=== PATIENT | female | born 1970 | race Hispanic/Latino ===

== ENCOUNTER 2017-10-02 17:28 | Emergency (ER) | payer OTHER ==
[2017-10-02] MEDS ORDERED: Albuterol 0.083% Inhal Sol (2.5 mg/3 mL) UD INH STA (18:02)
[2017-10-02] MEDS ORDERED: Promethazine 6.25 MG/5 ML CUP PO STA (18:02)
--- NOTE | 2017-10-02 18:07 | ED PDOC ---
Arrival/HPI - General Chief Complaint: Fever Time Seen by Provider: 10/02/17 17:41 Historian: Patient - History of Present Illness Narrative History of Present Illness (Text): 10/02/17 18:04 47yo female with no pmhx who present with complaint of nonproductive cough, left sided upper back pain, and fever x 3days. States it started last week and it resolved and then started again 3days ago. States she was taking Tylenol and Mucinex. She denies urinary symptoms, trauma, SOB, diaphoresis, nausea, vomiting , abdominal pain, any other complaint. Past Medical History - Provider Review Nursing Documentation Reviewed: Yes - Psychiatric Hx Substance Use: No Family/Social History - Physician Review Nursing Documentation Reviewed: Yes Family/Social History: Unknown Family HX Smoking Status: Never Smoked Hx Alcohol Use: No Hx Substance Use: No Allergies/Home Meds Allergies/Adverse Reactions: Allergies codeine Allergy (Verified 10/02/17 17:56) FATIGUE Review of Systems - Physician Review All systems were reviewed & negative as marked: Yes - Review of Systems Constitutional: Normal, Fevers Eyes: Normal ENT: Normal Respiratory: Cough. absent: SOB, Sputum, Wheezing Cardiovascular: Normal Gastrointestinal: Normal Genitourinary Female: Normal Musculoskeletal: Back Pain Skin: Normal Neurological: Normal Endocrine: Normal Hemo/Lymphatic: Normal Psychiatric: Normal Physical Exam Vital Signs Reviewed: Yes Vital Signs Temp Pulse Resp BP Pulse Ox 10/02/17 17:53 99.9 F H 124 H 18 124/82 95 Temperature: Febrile Blood Pressure: Normal Pulse: Tachycardic Respiratory Rate: Normal Appearance: Positive for: Well-Appearing, Non-Toxic, Comfortable Pain Distress: None Mental Status: Positive for: Alert and Oriented X 3 - Systems Exam Head: Present: Atraumatic, Normocephalic Pupils: Present: PERRL Extroacular Muscles: Present: EOMI Conjunctiva: Present: Normal Mouth: Present: Moist Mucous Membranes Neck: Present: Normal Range of Motion Respiratory/Chest: Present: Good Air Exchange, Rhonchi. No: Respiratory Distress, Accessory Muscle Use, Wheezes, Decreased Breath Sounds, Rales, Retracting Cardiovascular: Present: Regular Rate and Rhythm, Normal S1, S2. No: Murmurs Abdomen: No: Tenderness, Distention, Peritoneal Signs Back: Present: Normal Inspection. No: Midline Tenderness, Paraspinal Tenderness Upper Extremity: Present: Normal Inspection. No: Cyanosis, Edema Lower Extremity: Present: Normal Inspection. No: Edema Neurological: Present: GCS=15, CN II-XII Intact, Speech Normal Skin: Present: Warm, Dry, Normal Color. No: Rashes Psychiatric: Present: Alert, Oriented x 3, Normal Insight, Normal Concentration Medical Decision Making ED Course and Treatment: 10/02/17 18:08 47yo female in ED for fever, cough, back pain x 3days. Labs CXR Promethazine DM, Xopenx, 1L NS, Toradol 30mg Cardiac monitoring Will reassess 10/02/17 20:51 PT HR improved in ED s/p hydration. she was not hypoxic. She have Leukocytosis with shift. CXR LLL consolidation Blood culture pending. Levaquin 750mg ordered Pt;s Curb 65 criteria was zero. she does not meet criteria for admission. She also don;t have any co morbidity. All result was DW the pt. She was DC home with Levaquin 750mg, promethazine, albuterol and Naprosyn rx. Case was DW and he states he will see pt on Wednesday. PT was strongly advised to follow up with the PMD. TRT ED for any new or worsening symptoms. - Lab Interpretations Lab Results: 10/02/17 18:06 10/02/17 18:06 Lab Results 10/02/17 18:06: Sodium 138, Potassium 3.9, Chloride 96 L, Carbon Dioxide 26, Anion Gap 19, BUN 19, Creatinine 0.8, Est GFR ( Amer) > 60, Est GFR (Non- Af Amer) > 60, Random Glucose 140 H, Calcium 8.7, Total Bilirubin 0.9, AST 29, ALT 21, Alkaline Phosphatase 85, Total Protein 7.7, Albumin 4.0, Globulin 3.6, Albumin/Globulin Ratio 1.1 10/02/17 18:06: WBC 23.2 H, RBC 4.44, Hgb 12.6, Hct 37.1, MCV 83.6, MCH 28.4, MCHC 34.0, RDW 14.0, Plt Count 310, MPV 9.3, Gran % 95.2 H, Lymph % (Auto) 2.8 L , Mccreary % (Auto) 1.9, Eos % (Auto) 0.0 L, Baso % (Auto) 0.1, Gran # 22.13 H, Lymph # (Auto) 0.6 L, Mccreary # (Auto) 0.4, Eos # (Auto) 0.0, Baso # (Auto) 0.03, Neutrophils % (Manual) 92 H, Band Neutrophils % 2, Lymphocytes % (Manual) 5 L, Monocytes % (Manual) 1, Platelet Evaluation Normal, Anisocytosis (manual) 1+, Microcytosis (manual) Slight - RAD Interpretation Radiology Orders: 10/02/17 18:01 CHEST TWO VIEWS (PA/LAT) [RAD] Stat - Medication Orders Current Medication Orders: Discontinued Medications Sodium Chloride (Sodium Chloride 0.9%) 1,000 mls @ 999 mls/hr IV .Q1H1M STA Stop: 10/02/17 19:10 Last Admin: 10/02/17 18:55 Dose: 999 mls/hr eMAR Start Stop Document 10/02/17 18:55 EWO (Rec: 10/02/17 18:55 [email or web address] [id number]) Intravenous Solution Start Date 10/02/17 Start Time 18:10 End Date 10/02/17 End time 19:10 Total Infusion Time 60 Ketorolac Tromethamine (Toradol) 30 mg IVP STAT STA Stop: 10/02/17 18:03 Levalbuterol HCl (Xopenex) 1.25 mg IH STAT STA Stop: 10/02/17 18:11 Last Admin: 10/02/17 18:56 Dose: 1.25 mg Levofloxacin (Levaquin) 750 mg PO STAT STA PRN Reason: Protocol Stop: 10/02/17 20:03 Promethazine HCl (Phenergan Syrup) 6.25 mg PO ONCE STA Stop: 10/02/17 18:03 Disposition/Present on Arrival - Present on Arrival Any Indicators Present on Arrival: No History of DVT/PE: No History of Uncontrolled Diabetes: No Urinary Catheter: No History of Decub. Ulcer: No History Surgical Site Infection Following: None - Disposition Have Diagnosis and Disposition been Completed?: Yes Diagnosis: Pneumonia Disposition: HOME/ ROUTINE Disposition Time: 20:10 Patient Plan: Discharge Patient Problems: Current Active Problems Problem Status Onset Pneumonia Acute Condition: STABLE Discharge Instructions (ExitCare): Community-Acquired Pneumonia, Adult (DC) Additional Instructions: Take medication and drink plenty of fluid Follow up with your Doctor on Wednesday Return to ED for any new or worsening symptoms Prescriptions: Albuterol HFA [Ventolin HFA 90 mcg/actuation (8 g)] 2 puff IH [id number] #1 puff levoFLOXacin [Levaquin] 750 mg PO STAT #6 tab Naproxen [Naprosyn] 500 mg PO BID #20 tab Promethazine [Phenergan Syrup] 6.25 mg PO Q6 #100 cup Referrals: PCP,NO [Primary Care Provider] - Follow up with primary Vaibhav NEWELL,Meek Menjivar MD [Staff Provider] - Follow up with primary Forms: [employer] ([place]), WORK NOTE
[2017-10-02] MEDS ORDERED: Sodium Chloride 0.9% 1,000 ML IV STA (18:10)
[2017-10-02] MEDS ORDERED: Levalbuterol 1.25 MG/3 ML Inhal Soln UD IH STA (18:10)
[2017-10-02 18:47] LABS: BASO # 0.03 K/mm3 (0.0-2.0); BASO % 0.1 % (0.0-3.0); GRAN # 22.13 (1.4-6.5); GRAN % 95.2 % (50.0-68.0); HEMOGLOBIN 12.6 g/dL (12.0-16.0); LYMPH # 0.6 (1.2-3.4); LYMPH % 2.8 % (22.0-35.0); MEAN CELL VOLUME 83.6 fl (80.0-105.0); MEAN CORPUSCULAR HEMOGLOBIN 28.4 pg (25.0-35.0); MEAN PLATELET VOLUME 9.3 fl (7.0-11.0); MONO # 0.4 (0.1-0.6); MONO % 1.9 % (1.0-6.0); PLATELET COUNT 310 10^3/uL (120.0-450.0); RBC 4.44 10^6/uL (3.5-6.1); WHITE BLOOD COUNT 23.2 10^3/ul (4.5-11.0)
[2017-10-02 19:01] LABS: ALB/GLOB RATIO 1.1 (1.1-1.8); CALCIUM 8.7 mg/dL (8.4-10.5); GFR AFRICAN-AMERICAN > 60; GFR NON-AFRICAN AMERICAN > 60
[2017-10-02 19:05] LABS: ALT/SGPT 21 U/L (7-56); AST/SGOT 29 U/L (14-36); BLOOD UREA NITROGEN 19 mg/dL (7-21)
[2017-10-02 19:20] LABS: ANISOCYTOSIS 1+; BAND 2 % (0-2); LYMPHOCYTE 5 % (22.0-35.0); MICROCYTOSIS SLIGHT; MONOCYTE 1 % (1.0-6.0); NEUTROPHIL 92 % (50.0-70.0); PLATELET ESTIMATE NORMAL (NORMAL)
[2017-10-02] MEDS ORDERED: levoFLOXacin 750 MG TAB PO STA (20:02)
[2017-10-02 21:19] VITALS: RESP 17
[2017-10-02 21:20] LABS: URINE APPEARANCE CLOUDY (CLEAR); URINE BILIRUBIN SMALL (NEGATIVE); URINE BLOOD SMALL (NEGATIVE); URINE COLOR YELLOW (YELLOW); URINE GLUCOSE (UA) NEGATIVE (NEGATIVE); URINE LEUKOCYTE ESTERASE SMALL Leu/uL (NEGATIVE); URINE PROTEIN 100 mg/dL (<30 mg/dL)
[2017-10-02 21:28] LABS: URINE BACTERIA MANY (NEG)
[2017-10-02 21:29] LABS: URINE AMORPHOUS SEDIMENT FEW; URINE COARSE GRANULAR CAST SMALL /hpf (0-2); URINE FINE GRANULAR CAST 0 - 2 /hpf (0-2)
[2017-10-02 21:45] VITALS: BP 128/78; PULSE 112; TEMP 98.2; O2SAT 96
--- NOTE | 2017-10-03 10:59 | RAD ---
Date of service: 10/02/2017 HISTORY: cough COMPARISON: No prior. TECHNIQUE: Chest PA and lateral FINDINGS: LUNGS: Left lower lobe infiltrate likely representing pneumonia.Mild right basilar atelectasis. PLEURA: No significant pleural effusion identified. No pneumothorax apparent. CARDIOVASCULAR: Heart size is upper limits of normal. OSSEOUS STRUCTURES: No significant abnormalities. VISUALIZED UPPER ABDOMEN: Normal. OTHER FINDINGS: None. IMPRESSION: Left lower lobe infiltrate likely representing pneumonia. Mild right basilar atelectasis
== END 2017-10-02 21:45 | disposition home or self-care (01) ==
LOC: ED 17:28
DX: J18.9 Pneumonia, unspecified organism (principal)
CPT/HCPCS: 71046; 80053; 81001; 84702; 85025; 87040; 87149; 87205; 96360; 99284; J1885; J7030

== ENCOUNTER 2017-10-13 06:12 | Inpatient (IN) | payer OTHER ==
--- NOTE | 2017-10-13 06:54 | ED PDOC ---
Arrival/HPI - General Chief Complaint: Back Pain Time Seen by Provider: 10/13/17 06:31 Historian: Patient - History of Present Illness Narrative History of Present Illness (Text): 10/13/17 06:51 Patient presents to the ED PMHX recent pneumonia with complaint of onset pain to the left scapula /back area.States began yesterday associated with low grade fever.No chest pain or SOB.Patient was seen in the ED ~ 11 days prior diagnosed with a pneumonia discharged on antibiotics.States she followed up with her doctor who extended the course of antibiotics recently finished/Patient states she returned to work 2 days ago.Patient states symptoms similar to when she was diagnosed with pneumonia. Past Medical History - Provider Review Nursing Documentation Reviewed: Yes - Travel History Have you recently traveled outside [place] w/in the past 3 mons?: No - Pulmonary Hx Pneumonia: Yes - Psychiatric Hx Substance Use: No - Anesthesia Hx Anesthesia: No Family/Social History - Physician Review Nursing Documentation Reviewed: Yes Family/Social History: No Known Family HX Smoking Status: Never Smoked Hx Alcohol Use: No Hx Substance Use: No Allergies/Home Meds Allergies/Adverse Reactions: Allergies codeine Allergy (Verified 10/13/17 06:31) FATIGUE Review of Systems - Review of Systems Constitutional: Fevers Eyes: Normal ENT: Normal Respiratory: Normal Cardiovascular: Normal Gastrointestinal: Normal Genitourinary Female: Normal Musculoskeletal: Back Pain Skin: Normal Neurological: Normal Endocrine: Normal Hemo/Lymphatic: Normal Psychiatric: Normal Physical Exam Vital Signs Temp Pulse Resp BP Pulse Ox 10/13/17 06:30 99 F 100 H 14 117/49 L 96 Temperature: Afebrile Blood Pressure: Normal Pulse: Regular Respiratory Rate: Normal Appearance: Positive for: Well-Appearing, Non-Toxic, Comfortable Pain Distress: None Mental Status: Positive for: Alert and Oriented X 3 - Systems Exam Head: Present: Atraumatic, Normocephalic Pupils: Present: PERRL Extroacular Muscles: Present: EOMI Conjunctiva: Present: Normal Mouth: Present: Moist Mucous Membranes Neck: Present: Normal Range of Motion Respiratory/Chest: Present: Clear to Auscultation, Good Air Exchange. No: Respiratory Distress, Accessory Muscle Use Cardiovascular: Present: Regular Rate and Rhythm, Normal S1, S2. No: Murmurs Abdomen: No: Tenderness, Distention, Peritoneal Signs Back: Present: Normal Inspection. No: CVA Tenderness Upper Extremity: Present: Normal Inspection. No: Cyanosis, Edema Lower Extremity: Present: Normal Inspection. No: Edema Neurological: Present: GCS=15, CN II-XII Intact, Speech Normal, Motor Func Grossly Intact, Normal Sensory Function Skin: Present: Warm, Dry, Normal Color. No: Rashes Psychiatric: Present: Alert, Oriented x 3, Normal Insight, Normal Concentration Medical Decision Making ED Course and Treatment: 10/13/17 06:56 Differntial DX. Pneumonia/pneumothorax/musculoskeletal pain Plan: -Labs/CXR/EKG -reassess/disposition 10/13/17 07:00 Case endorsed to /pending labs/CXR/reassess/final disposition - RAD Interpretation Radiology Orders: 10/13/17 06:47 CHEST TWO VIEWS (PA/LAT) [RAD] Stat Disposition/Present on Arrival - Present on Arrival Any Indicators Present on Arrival: No History of DVT/PE: No History of Uncontrolled Diabetes: No Urinary Catheter: No History of Decub. Ulcer: No History Surgical Site Infection Following: None - Disposition Have Diagnosis and Disposition been Completed?: No Diagnosis: Back pain Disposition Time: 07:00 Condition: STABLE Referrals: Vaibhav NEWELL,Meek Menjivar MD [Primary Care Provider] - Follow up with primary
[2017-10-13 07:03] LABS: VENOUS BLOOD GAS PO2 45 mm/Hg (30-55); VENOUS BLOOD PH 7.47 (7.32-7.43)
[2017-10-13 07:07] LABS: HEMOGLOBIN 11.8 g/dL (12.0-16.0); MEAN CELL VOLUME 83.5 fl (80.0-105.0); MEAN CORPUSCULAR HGB CONC 32.3 g/dl (31.0-37.0); MEAN PLATELET VOLUME 8.5 fl (7.0-11.0); RBC 4.37 10^6/uL (3.5-6.1); RED CELL DISTRIBUTION WIDTH 14.8 % (11.5-14.5); WHITE BLOOD COUNT 20.2 10^3/ul (4.5-11.0)
[2017-10-13] MEDS ORDERED: Sodium Chloride 0.9% 1,000 ML IV STA (07:15)
--- NOTE | 2017-10-13 07:28 | ED PDOC ---
Physical Exam Vital Signs Temp Pulse Resp BP Pulse Ox 10/13/17 06:30 99 F 100 H 14 117/49 L 96 Medical Decision Making ED Course and Treatment: 10/13/17 07:17 Case endorsed to me by Dr. Ayoub. Pending Labs, Chest X-ray, reassess and disposition. 10/13/17 08:20 CXR Impression: As read by me, left lower lobe pneumonia. Worse than pervious Chest X-ray. 10/13/17 08:[address] Esposito who is aware and agrees with the plan with administering Rocephin and Zithromax. Accepts patient into his service and request Dr. Gerard Filling Room Operator consult. - Lab Interpretations Lab Results: 10/13/17 06:55 10/13/17 06:55 Lab Results 10/13/17 06:55: Magnesium 2.0 10/13/17 06:55: WBC 20.2 H, RBC 4.37, Hgb 11.8 L, Hct 36.5, MCV 83.5, MCH 27.0, MCHC 32.3, RDW 14.8 H, Plt Count 372, MPV 8.5 10/13/17 06:55: Sodium 138, Chloride 100, Potassium 3.2 L, Carbon Dioxide 26, Anion Gap 15, BUN 8, Creatinine 0.6 L, Est GFR ( Amer) > 60, Est GFR (Non -Af Amer) > 60, Random Glucose 133 H, Calcium 8.7, Total Bilirubin 0.7, AST 14 D, ALT 19, Alkaline Phosphatase 68, Total Protein 7.3, Albumin 3.8, Globulin 3.5 , Albumin/Globulin Ratio 1.1 10/13/17 06:55: pO2 45, VBG pH 7.47 H, VBG pCO2 40.0, VBG HCO3 29.1 H, VBG Total CO2 30.3 H, VBG O2 Sat (Calc) 85.5 H, VBG Base Excess 5.0 H, VBG Potassium 3.3 L, Sodium 136.0, Chloride 100.0, Glucose 144 H, Lactate 1.2, FiO2 21.0, Venous Blood Potassium 3.3 L I have reviewed the lab results: Yes - RAD Interpretation Radiology Orders: 10/13/17 06:47 CHEST TWO VIEWS (PA/LAT) [RAD] Stat - Medication Orders Current Medication Orders: Albuterol/Ipratropium (Duoneb 3 Mg/0.5 Mg (3 Ml) Ud) 3 ml IH Q2H PRN PRN Reason: Shortness of Breath Albuterol/Ipratropium (Duoneb 3 Mg/0.5 Mg (3 Ml) Ud) 3 ml IH Q4H GIBSON Azithromycin (Zithromax) 500 mg PO DAILY GIBSON PRN Reason: Protocol Ceftriaxone Sodium (Rocephin 1 Gram Ivpb) 1 gm in 100 mls @ 100 mls/hr IVPB DAILY GIBSON PRN Reason: Protocol Discontinued Medications Azithromycin (Zithromax) 500 mg PO STAT STA PRN Reason: Protocol Stop: 10/13/17 08:31 Sodium Chloride (Sodium Chloride 0.9%) 1,000 mls @ 999 mls/hr IV .Q1H1M STA Stop: 10/13/17 08:15 Last Admin: 10/13/17 07:48 Dose: 999 mls/hr eMAR Start Stop Document 10/13/17 07:48 [email or web address] (Rec: 10/13/17 07:49 [email or web address] [id number]) Intravenous Solution Start Date 10/13/17 Start Time 07:48 End Date 10/13/17 Ceftriaxone Sodium (Rocephin 1 Gram Ivpb) 1 gm in 100 mls @ 200 mls/hr IVPB STAT STA PRN Reason: Protocol Stop: 10/13/17 08:58 Ketorolac Tromethamine (Toradol) 30 mg IVP ONCE ONE Stop: 10/13/17 07:16 Last Admin: 10/13/17 07:49 Dose: 30 mg MAR Pain Assessment Document 10/13/17 07:49 [email or web address] (Rec: 10/13/17 07:49 [email or web address] [id number]) Pain Reassessment Is this a pain reassessment? No Sleep Is patient sleeping during reassessment? No Presence of Pain Presence of Pain Yes Pain Scale Used Pain Scale Used Numeric Location Left, Right or Bilateral Left Pain Location Body Site Back Description Description Constant Intensity of Pain at present 5 Pain Behavior Facial Grimacing Aggravating Factors Changing Position Alleviating Factors/Management Medication Techniques Alleviating Factors Medication IVP Administration Document 10/13/17 07:49 [email or web address] (Rec: 10/13/17 07:49 [email or web address] [id number]) Charges for Administration # of IVP Administrations 1 Potassium Chloride (K-Dur 20 Meq Er Tab) 40 meq PO STAT STA Stop: 10/13/17 07:57 - Scribe Statement The provider has reviewed the documentation as recorded by the Tere Harris Provider Scribe Attestation: All medical record entries made by the Scribe were at my direction and personally dictated by me. I have reviewed the chart and agree that the record accurately reflects my personal performance of the history, physical exam, medical decision making, and the department course for this patient. I have also personally directed, reviewed, and agree with the discharge instructions and disposition. Disposition/Present on Arrival - Present on Arrival Any Indicators Present on Arrival: No History of DVT/PE: No History of Uncontrolled Diabetes: No Urinary Catheter: No History of Decub. Ulcer: No History Surgical Site Infection Following: None - Disposition Have Diagnosis and Disposition been Completed?: Yes Diagnosis: Back pain Disposition Time: 08:30 Patient Plan: Admission Patient Problems: Current Active Problems Problem Status Onset Back pain Acute Condition: FAIR Referrals: Vaibhav NEWELL,Meek Menjivar MD [Primary Care Provider] - Follow up with primary Forms: [employer] ([place])
[2017-10-13 07:54] LABS: ALB/GLOB RATIO 1.1 (1.1-1.8); ALBUMIN 3.8 g/dL (3.0-4.8); ALT/SGPT 19 U/L (7-56); AST/SGOT 14 U/L (14-36); BLOOD UREA NITROGEN 8 mg/dL (7-21); CALCIUM 8.7 mg/dL (8.4-10.5); GFR NON-AFRICAN AMERICAN > 60
[2017-10-13] MEDS ORDERED: Potassium Chloride 20 mEq ER Tab PO STA (07:56)
[2017-10-13] MEDS ORDERED: cefTRIAXone 1 gm 1 GM/100 ML BAG IVPB STA (08:29)
[2017-10-13] MEDS ORDERED: Albuterol-Ipratrop 3 mg / 0.5 (3 ml) UD IH PRN (08:31)
--- NOTE | 2017-10-13 09:11 | RAD ---
Date of service: 10/13/2017 HISTORY: pain COMPARISON: 10/02/2017 TECHNIQUE: Chest PA and lateral FINDINGS: LUNGS: No active pulmonary disease. PLEURA: Moderate size left effusion CARDIOVASCULAR: Normal. OSSEOUS STRUCTURES: No significant abnormalities. VISUALIZED UPPER ABDOMEN: Normal. OTHER FINDINGS: None. IMPRESSION: Moderate left effusion
[2017-10-13] MEDS: Albuterol-Ipratrop 3 mg / 0.5 (3 ml) UD IH SCH ×5 (09:14→23:18)
[2017-10-13] MEDS ORDERED: Vancomycin 1gm in NS 250ml 1 GM/250 ML BAG IVPB SCH (10:00)
--- NOTE | 2017-10-13 10:12 | HP ---
HISTORY OF PRESENT ILLNESS: The patient is a 47 year old woman with no significant medical history who presented to [facility] for evaluation of a 10 day history of pleuritic chest pain, cough productive of green sputum, subjective fevers and malaise. The patient was initially seen at [facility] ED on 2017 for the aforementioned symptoms. She was diagnosed with pneumonia and discharged on a course of Levaquin 750mg daily for 7 days. The patient followed up with her PMD 3 days later and was clinically improved. Her course of Levaquin was extended an additional 3 days for a total of 10 days. Approximately 2 days after completing a course of antibiotics, the patient developed recurrent left-sided pleuritic chest pain which prompted her ED visit. On examination she was found to be afebrile and hemodynamically stable. Labs demonstrated leukocytosis with a WBC of 20 and radiographs demonstrated a left-sided pleural effusion (worse as compared to prior). Of note, on her prior ED visit her cultures grew Streptococcus pneumoniae. The patient was started on IV fluids, IV antibiotics and admitted for continued management of left lower lobe pneumonia. PAST MEDICAL HISTORY: None. PAST SURGICAL HISTORY: None. ALLERGIES: Codeine. MEDICATIONS: None. FAMILY HISTORY: Significant for diabetes and hypertension. SOCIAL HISTORY: The patient denies any history of tobacco or illicit drug abuse. She reports social alcohol use. REVIEW OF SYSTEMS: A 12-point review of systems is negative except as per HPI. PHYSICAL EXAMINATION: VITAL SIGNS: Temperature 97.8, pulse 100, blood pressure 117/49, respiratory rate 14, oxygen saturation 96% on room air. GENERAL: No apparent distress. HEENT: PERRL, EOMI. No scleral icterus. No conjunctival pallor. NECK: No JVD. LUNGS: Decreased breath sounds at bases with few scattered rhonchi and crackles to the left base extending approximately one-third of the way up the left hemithorax. CARDIOVASCULAR: Regular rate and rhythm. Normal S1 and S2. No murmurs. ABDOMEN: Normoactive bowel sounds. Soft, nontender, nondistended. EXTREMITIES: No edema. NEUROLOGIC: Awake, alert and oriented x 3. No focal motor deficits. LABORATORY DATA: WBC 20, hemoglobin 12, hematocrit 36, platelets 372. Sodium 138, potassium 3.2, chloride 100, bicarb 26, BUN 8, creatinine 0.6, glucose 133. IMAGING STUDIES: Chest x-ray demonstrates moderate left effusion. ASSESSMENT: The patient is a 47 year old woman with no significant past medical history who was recently treated with a 10 day course of Levaquin for left lower lobe pneumonia and who returned to [facility] ED for evaluation of a 2 day history of left-sided pleuritic chest pain and admitted for management of healthcare-associated pneumonia. PLAN: 1. Healthcare-associated pneumonia. We will start Azithromycin and Ceftriaxone. Cultures from her prior ED visit are noted. We will repeat blood and sputum culture. Dr. Mason of Infectious Disease has been consulted for further evaluation and recommendations. Dr. Gerard of Pulmonary & Critical Care Medicine has also been consulted. We will continue to monitor for fever and leukocytosis. 2. Prophylaxis. GI prophylaxis not indicated as the patient is eating. DVT prophylaxis not indicated as the patient is ambulatory. CODE STATUS: Full code. Meek sEposito MD MTDD
[2017-10-13] MEDS: Piperacillin/Tazobact 3.375 gm 100 ML IVPB SCH ×3 (10:26→18:27)
--- NOTE | 2017-10-13 11:02 | CT ---
Date of service: 10/13/2017 PROCEDURE: CT Chest without contrast HISTORY: left pleural effusion COMPARISON: None available. TECHNIQUE: Contiguous axial images were obtained through the chest without intravenous contrast enhancement. Sagittal and coronal reconstructions were performed. Radiation dose (DLP): 1117 mGy-cm. This CT exam was performed using one or more of the following dose reduction techniques: Automated exposure control, adjustment of the mA and/or kV according to patient size, and/or use of iterative reconstruction technique. FINDINGS: LUNGS: There is consolidation at the left lung base with air bronchograms. This is adjacent to a large left pleural effusion. There is also volume loss in the left lung MEDIASTINUM: Unremarkable thoracic aorta. No aneurysm. Normal sized heart. Main pulmonary artery unremarkable. No vascular congestion. No lymphadenopathy. PLEURA: Large left-sided pleural effusion which appears to be loculated BONES: No fracture. No destructive lesion. UPPER ABDOMEN: Grossly unremarkable. OTHER FINDINGS: There is enlargement of the thyroid right greater than left consistent with goiter IMPRESSION: There is consolidation at the left lung base with air bronchograms. This is adjacent to a large left pleural effusion. There is also volume loss in the left lung
[2017-10-13 12:29] VITALS: BMI 45.4
[2017-10-13] MEDS ORDERED: Pneumococcal 23-Valent Vaccine IM ONE (12:29)
[2017-10-13] MEDS: Linezolid 600 mg in D5W 300 ml 600 MG/300 ML BAG IVPB SCH ×2 (13:25→21:43)
--- NOTE | 2017-10-13 14:16 | CP.PCM.CON ---
History of Present Illness - History of Present Illness History of Present Illness: 47 year old female with PMH of morbid obesity with BMI 45 was recently seen in the ED on 2017 for left sided posterior chest pain. CXR was done which showed left lower lobe pneumonia and the patient was prescribed Levofloxacin 750 mg daily. Blood cultures drawn at that time showed Strep. pneumoniae, sensitive to Levofloxacin. The patient took it for 7 days, saw her PMD who extended it for another 3 days, therefore the patient took a total of 10 days of antibiotics. The patient's chest pain improved and initially the patient has some shortness of breath but it improved as well. She was relatively symptom- free for about 2 days and then her chest pain flared up again yesterday, with associated dry cough. Prior to her pneumonia diagnosis, she went to [place] and did sight-seeing, went to a [place], had walks outdoors. She denies specific animal contacts, denies insect bites. She denies fever or chills, no nausea or vomiting, no headache or dizziness, no sore throat, no rhinorrhea, no dysphagia, no skin rash, no pruritus, no abdominal pain, no diarrhea, no dysuria , no hematuria. CXR was repeated showing the left lower lobe infiltrates as well as surrounding effusion, confirmed on CT chest. Infectious Diseases consult is requested to further evaluate and manage. Review of Systems - Review of Systems All systems: reviewed and no additional remarkable complaints except (as per HPI ) Past Patient History - Past Social History Smoking Status: Never Smoked - PULMONARY Hx Pneumonia: Yes - PSYCHIATRIC Hx Substance Use: No - SURGICAL HISTORY Hx Surgeries: No - ANESTHESIA Hx Anesthesia: No Meds Allergies/Adverse Reactions: Allergies Allergy/AdvReac Type Severity Reaction Status Date / Time codeine Allergy FATIGUE Verified 10/13/17 11:58 - Medications Medications: Current Medications Albuterol/Ipratropium (Duoneb 3 Mg/0.5 Mg (3 Ml) Ud) 3 ml IH Q2H PRN PRN Reason: Shortness of Breath Albuterol/Ipratropium (Duoneb 3 Mg/0.5 Mg (3 Ml) Ud) 3 ml IH Q4H GIBSON Azithromycin (Zithromax) 500 mg PO DAILY GIBSON PRN Reason: Protocol Ceftriaxone Sodium (Rocephin 1 Gram Ivpb) 1 gm in 100 mls @ 100 mls/hr IVPB DAILY GIBSON PRN Reason: Protocol Physical Exam - Constitutional Appears: Non-toxic, Chronically Ill - Head Exam Head Exam: NORMAL INSPECTION - ENT Exam ENT Exam: Mucous Membranes Moist - Neck Exam Neck exam: Negative for: Meningismus - Respiratory Exam Respiratory Exam: Decreased Breath Sounds (at the left base) - Cardiovascular Exam Cardiovascular Exam: +S1, +S2 - GI/Abdominal Exam GI & Abdominal Exam: Soft. absent: Tenderness Results - Vital Signs Recent Vital Signs: Last Vital Signs Temp 99 F 10/13/17 06:30 Pulse 100 H 10/13/17 06:30 Resp 14 10/13/17 06:30 BP 117/49 L 10/13/17 06:30 Pulse Ox 96 10/13/17 06:30 - Labs Result Diagrams: 10/13/17 06:55 10/13/17 06:55 Assessment & Plan - Assessment and Plan (Free Text) Plan: Assessment Sepsis due to left lower lobe healthcare-associated pneumonia with parapneumonic effusion with possible gram positive cocci and/or gram negative bacilli and/or atypical organisms R/O left sided empyema recent treatment of left lower lobe community-acquired pneumonia with Strep pneumoniae bacteremia morbid obesity with BMI 45 Plan Started Zyvox, Zosyn and Zithromax pending blood cx, urine Legionella Ag, PCT, sputum cx; reviewed CXR and CT chest follow up Pulmonary evaluation and recommendations would suggest diagnostic thoracentesis for pleural fluid analysis and cultures will check HIV test will monitor clinically
[2017-10-13] MEDS ORDERED: guaiFENesin-Codeine 100-10mg/5ml Syrup (5 ml) UD PO PRN (17:57)
[2017-10-13] MEDS: guaiFENesin 100 mg/5 ml Syrup UD PO PRN (18:15)
--- NOTE | 2017-10-13 19:41 | CARD ---
APPROVED REPORT Date of service: 10/13/2017 EXAM: Two-dimensional and M-mode echocardiogram with Doppler and color Doppler. INDICATION Infection:Rule out subacute bacterial endocarditis 2D DIMENSIONS Left Atrium (2D)3.7 (1.6-4.0cm)IVSd1.1 (0.7-1.1cm) LVDd4.1 (3.9-5.9cm)PWd1.2 (0.7-1.1cm) LVDs2.9 (2.5-4.0cm)FS (%) 30.4 % LVEF (%)58.2 (>50%) M-Mode DIMENSIONS Aortic Root3.40 (2.2-3.7cm)Aortic Cusp Exc.1.80 (1.5-2.0cm) Aortic Valve AoV Peak Akjmerag915.0cm/Danielle Peak GR.14mmHg Mitral Valve MV E Dztnzanb32.0cm/sMV A Osarywrr311.0cm/sE/A ratio0.8 TDI Lateral E' Peak V13.10cm/sMedial E' Peak V6.43cm/sE/Lateral E'6.6 E/Medial E'13.5 Pulmonary Valve PV Peak Gubzmgzb547.0cm/sPV Peak Grad.7mmHg Tricuspid Valve TR Peak Lnoxdydq401pr/sRAP [id number] Peak Gr.10mmHg [id number] LEFT VENTRICLE The left ventricle is normal size. There is borderline concentric left ventricular hypertrophy. The left ventricular function is normal. The left ventricular ejection fraction is within the normal range. There is normal LV segmental wall motion. Transmitral Doppler flow pattern is Grade I-abnormal relaxation pattern. RIGHT VENTRICLE The right ventricle is normal size. There is normal right ventricular wall thickness. The right ventricular systolic function is normal. ATRIA The left atrium size is normal. The right atrium size is normal. AORTIC VALVE The aortic valve is mildly thickened. No aortic regurgitation is present. There is no aortic valvular stenosis. MITRAL VALVE The mitral valve is normal in structure. There is no mitral valve regurgitation noted. There is no mitral valve stenosis. TRICUSPID VALVE The tricuspid valve is normal in structure. There is trace tricuspid regurgitation. PULMONIC VALVE The pulmonary valve is normal in structure. There is no pulmonic valvular regurgitation. GREAT VESSELS The aortic root is normal in size. The IVC is normal in size and collapses >50% with inspiration. PERICARDIAL EFFUSION There is small left pleural effusion. There is a trace circumferential pericardial effusion. <Conclusion> The left ventricle is normal size. There is borderline concentric left ventricular hypertrophy. The left ventricular function is normal. The left ventricular ejection fraction is within the normal range. There is normal LV segmental wall motion. Transmitral Doppler flow pattern is Grade I-abnormal relaxation pattern. No vegitation seen
--- NOTE | 2017-10-13 23:31 | CARD ---
APPROVED REPORT Date of service: 10/13/2017 EKG Measurement Heart [id number] <Conclusion> Sinus tachycardia Otherwise normal ECG
[2017-10-14] MEDS: Piperacillin/Tazobact 3.375 gm 100 ML IVPB SCH ×5 (00:10→23:18)
[2017-10-14] MEDS: Albuterol-Ipratrop 3 mg / 0.5 (3 ml) UD IH SCH ×6 (04:36→22:47)
[2017-10-14 06:46] LABS: BASO # 0.02 K/mm3 (0.0-2.0); BASO % 0.1 % (0.0-3.0); EOS # 0.1 (0.0-0.7); EOS % 0.9 % (1.5-5.0); GRAN # 10.96 (1.4-6.5); GRAN % 79.4 % (50.0-68.0); HEMOGLOBIN 10.7 g/dL (12.0-16.0); LYMPH # 1.7 (1.2-3.4); LYMPH % 12.5 % (22.0-35.0); MEAN CELL VOLUME 84.5 fl (80.0-105.0); MEAN CORPUSCULAR HEMOGLOBIN 27.2 pg (25.0-35.0); MEAN CORPUSCULAR HGB CONC 32.1 g/dl (31.0-37.0); MEAN PLATELET VOLUME 8.5 fl (7.0-11.0); MONO % 7.1 % (1.0-6.0); RBC 3.94 10^6/uL (3.5-6.1); RED CELL DISTRIBUTION WIDTH 15.2 % (11.5-14.5); WHITE BLOOD COUNT 13.8 10^3/ul (4.5-11.0)
[2017-10-14 07:19] LABS: ALBUMIN 3.4 g/dL (3.0-4.8); ALT/SGPT 15 U/L (7-56); AST/SGOT 16 U/L (14-36); BLOOD UREA NITROGEN 6 mg/dL (7-21); CALCIUM 8.3 mg/dL (8.4-10.5); GFR NON-AFRICAN AMERICAN > 60
--- NOTE | 2017-10-14 08:58 | PN ---
SUBJECTIVE: The patient was seen and examined at bedside on the general medical ac. No acute events overnight. She remains afebrile and hemodynamically stable. This morning she reports mild improvement in her respiratory status but continues to endorse pleuritic chest pain and otherwise offers no complaints. PHYSICAL EXAMINATION: VITAL SIGNS: Temperature 97.6, pulse 97, blood pressure 147/86, respiratory rate 20, oxygen saturation 92% on room air. GENERAL: No apparent distress. HEENT: PERRL, EOMI. No scleral icterus. No conjunctival pallor. NECK: No JVD. LUNGS: Decreased breath sounds at the bases with few scattered rhonchi and crackles to the left base. CARDIOVASCULAR: Regular rate and rhythm. Normal S1, S2. No murmurs. ABDOMEN: Normoactive bowel sounds, soft, nontender, nondistended. EXTREMITIES: No edema. NEUROLOGIC: Awake, alert, and oriented x 3. No focal motor deficits. LABORATORY DATA: WBC 13.8 with 79% neutrophils, hemoglobin 10.7, hematocrit 33, platelets 322. Chemistry reviewed and unremarkable. Procalcitonin less than 0.05. ASSESSMENT: The patient is a 47 year old woman with no significant past medical history who was recently treated with a 10 day course of Levaquin for left lower lobe pneumonia with cultures growing Streptococcus pneumoniae who returned to [facility] ED for evaluation of a 2 day history of left-sided pleuritic chest pain and was admitted for management of healthcare-associated pneumonia. PLAN: 1. Healthcare-associated pneumonia. CT imaging reviewed. Input from Dr. Mason greatly appreciated. The patient remains on Azithromycin, Zosyn and Linezolid. Continue with supplemental oxygen and bronchodilators as needed. Continue to monitor for fever and leukocytosis. Continue to encourage incentive spirometry. 2. Prophylaxis. GI prophylaxis is not indicated as the patient is eating. DVT prophylaxis is not indicated as the patient is ambulatory. CONSENT: Full code. Meek Esposito MD [facility]TD[facility]
--- NOTE | 2017-10-14 09:53 | CON ---
Copied To: Harrison Gerard MD Attending MD: Harrison Gerard MD DATE: 10/14/2017 PULMONARY CONSULTATION HISTORY: This is a 47-year-old woman with minimal previous medical history. She stated that several days ago, she had some pain. It came on abruptly. It was not associated with fever or chills. She did not cough, did not have any expectoration. She was treated as an outpatient with levofloxacin when an x-ray showed pneumonia. It was found to be strep sensitive to pneumonia; after seven days, she did not feel better and she came to the hospital for additional time. The patient is sitting in bed comfortable, eating, states that the chest discomfort has reduced remarkably. She is not in any acute distress at this time. Further history is that she was in [place], [place] and active and at that time, had the development of this pain originally. The patient has morbid obesity. CAT scan of the chest shows a left lower lobe infiltrate with some parapneumonic effusion. PAST HISTORY: Negative. She has had pneumonia in the past, however; she is a nonsmoker. Travel history of no significance. No surgical history. SOCIAL HISTORY: Nonsmoker FAMILY HISTORY: Hypertension OUTPATIENT MEDICATIONS: Unknown at this time. ALLERGIES: CODEINE. REVIEW OF SYSTEMS: Reviewed with no additional remarkable complaints other than pleuritic discomfort. All other systems negative. PHYSICAL EXAMINATION: GENERAL: She is resting comfortably with no particular problems. She has a low grade fever of 99 yesterday, which is normal this morning; pulse is 90; respiratory rate is 16; blood pressure 120/70, pulse ox 96% on room air. NECK: Supple. No jugular venous distention. No lymphadenopathy. HEENT: Normocephalic, atraumatic. Eyes: PERRL. EOMs full. Conjunctivae pink. NECK: Supple. No JVD. No bruit. CHEST: Decreased breath sounds at the left base. Minimal rhonchi noted. CARDIOVASCULAR: Regular rhythm. S1, S2 without murmur, gallop or rub. ABDOMEN: Protuberant, soft. Bowel sounds normoactive without mass, guarding, rebound or organomegaly. EXTREMITIES: Reveal no clubbing, cyanosis, edema. NEUROLOGIC: No focal findings. SKIN: Dry; intact DATA: Laboratory data on admission are white count 20,000, hemoglobin 11.8, hematocrit 36, platelet count 372,000. Sodium 138, BUN 8, creatinine 0.6. Blood sugar 133. Chest x-ray: Left lower lobe infiltrate with effusion confirmed by CT of the chest. EKG, sinus rhythm, nonspecific ST-T wave changes. ASSESSMENT: 1. Left lower lobe pneumonia with parapneumonic effusion. 2. Bronchospasm upon admission, but no previous history of asthma. PLAN: The patient was already seen by Infectious Disease and was started on Zyvox, Zosyn and Zithromax pending blood cultures. Other serology is pending. At this time, I do not feel that an emergent thoracentesis as necessary. The patient is more comfortable and hopefully with antibiotic therapy, the effusion will decrease. Should the patient become more febrile or the effusion increase, then obviously drainage of this effusion is mandatory. At this time, however, I would treat cautiously and not take any chances with invasive procedure if it is not absolutely necessary. The patient appears to be responding to the antibiotics and hopefully, the effusion will resolve as well. I have discussed this case at length with the patient and we will call Dr. Esposito and discuss with him at any time if it seems necessary, we can do a diagnostic and therapeutic thoracentesis, pending the patient's status at that time. Thank you for the opportunity to evaluate this patient. We will follow closely with you. Harrison Gerard MD MTD[facility]
[2017-10-14] MEDS ORDERED: cefTRIAXone 1 gm 1 GM/100 ML BAG IVPB SCH (10:00)
[2017-10-14] MEDS: Linezolid 600 mg in D5W 300 ml 600 MG/300 ML BAG IVPB SCH ×2 (10:15→21:17)
--- NOTE | 2017-10-14 16:37 | CP.PCM.PN ---
Subjective - Date & Time of Evaluation Date of Evaluation: 10/14/17 Time of Evaluation: 11:45 - Subjective Subjective: Comfortable on a chair, no fevers, still with chest pain, no cough currently, no nausea or diarrhea. Objective - Vital Signs/Intake and Output Vital Signs (last 24 hours): Temp Pulse Resp BP Pulse Ox 98 F 101 H 20 119/74 93 L 10/13/17 23:08 10/13/17 23:08 10/13/17 23:08 10/13/17 23:08 10/13/17 23:08 - Medications Medications: Current Medications Albuterol/Ipratropium (Duoneb 3 Mg/0.5 Mg (3 Ml) Ud) 3 ml IH Q2H PRN PRN Reason: Shortness of Breath Albuterol/Ipratropium (Duoneb 3 Mg/0.5 Mg (3 Ml) Ud) 3 ml IH Q4H GIBSON Last Admin: 10/14/17 04:36 Dose: 3 ml Azithromycin (Zithromax) 500 mg PO DAILY GIBSON PRN Reason: Protocol Last Admin: 10/13/17 10:25 Dose: Not Given Guaifenesin (Robitussin) 100 mg PO Q4H PRN PRN Reason: Cough Last Admin: 10/13/17 18:15 Dose: 100 mg Piperacillin Sod/Tazobactam Sod (Zosyn 3.375 In Ns 100ml) 100 mls @ 200 mls/hr IVPB Q6 GIBSON PRN Reason: Protocol Stop: 10/20/17 10:01 Last Admin: 10/14/17 06:06 Dose: 200 mls/hr Linezolid (Zyvox 600mg/300ml D5w) 600 mg in 300 mls @ 200 mls/hr IVPB Q12 GIBSON PRN Reason: Protocol Stop: 10/20/17 12:31 Last Admin: 10/13/17 21:43 Dose: 200 mls/hr Ibuprofen (Motrin Tab) 600 mg PO Q6H PRN PRN Reason: Pain, moderate (4-7) Last Admin: 10/13/17 18:05 Dose: 600 mg - Labs Labs: 10/14/17 06:00 - Constitutional Appears: Chronically Ill - Head Exam Head Exam: NORMAL INSPECTION - Neck Exam Neck Exam: absent: Meningismus - Respiratory Exam Respiratory Exam: Decreased Breath Sounds - Cardiovascular Exam Cardiovascular Exam: +S1, +S2 - GI/Abdominal Exam GI & Abdominal Exam: Soft. absent: Tenderness Assessment and Plan - Assessment and Plan (Free Text) Plan: Assessment Sepsis due to left lower lobe healthcare-associated pneumonia with parapneumonic effusion with possible gram positive cocci and/or gram negative bacilli and/or atypical organisms R/O left sided empyema recent treatment of left lower lobe community-acquired pneumonia with Strep pneumoniae bacteremia morbid obesity with BMI 45 Plan continue Zyvox, Zosyn and Zithromax day 2 pending blood cx, urine Legionella Ag ; PCT is low; reviewed CXR and CT chest follow up Pulmonary evaluation and recommendations would suggest diagnostic thoracentesis for pleural fluid analysis and cultures when feasible HIV test is non-reactive will continue to monitor clinically
[2017-10-15] MEDS: Albuterol-Ipratrop 3 mg / 0.5 (3 ml) UD IH SCH ×8 (00:45→23:45)
[2017-10-15] MEDS: Piperacillin/Tazobact 3.375 gm 100 ML IVPB SCH ×3 (06:18→17:15)
[2017-10-15 07:43] LABS: BASO # 0.02 K/mm3 (0.0-2.0); BASO % 0.2 % (0.0-3.0); EOS # 0.2 (0.0-0.7); EOS % 1.6 % (1.5-5.0); GRAN # 8.6 (1.4-6.5); HEMOGLOBIN 10.5 g/dL (12.0-16.0); LYMPH # 1.6 (1.2-3.4); MEAN CELL VOLUME 83.7 fl (80.0-105.0); MEAN CORPUSCULAR HEMOGLOBIN 27.2 pg (25.0-35.0); MEAN CORPUSCULAR HGB CONC 32.5 g/dl (31.0-37.0); MEAN PLATELET VOLUME 8.4 fl (7.0-11.0); MONO # 1.2 (0.1-0.6); MONO % 10.2 % (1.0-6.0); RBC 3.86 10^6/uL (3.5-6.1); WHITE BLOOD COUNT 11.6 10^3/ul (4.5-11.0)
[2017-10-15 08:11] LABS: ALBUMIN 3.5 g/dL (3.0-4.8); ALT/SGPT 44 U/L (7-56); AST/SGOT 51 U/L (14-36); BLOOD UREA NITROGEN 6 mg/dL (7-21); CALCIUM 8.6 mg/dL (8.4-10.5); GFR NON-AFRICAN AMERICAN > 60
--- NOTE | 2017-10-15 08:20 | PN ---
SUBJECTIVE: The patient was seen and examined at bedside on the general medical ac. No acute events overnight. She remains afebrile, hemodynamically stable and with continued improvement in her respiratory status. She also reports significant improvement in her pleuritic chest pain and overall offers no complaints. OBJECTIVE: VITAL SIGNS: Temperature 98, pulse 111, blood pressure 125/91, respiratory rate 20, oxygen saturation 94% on room air. GENERAL: No apparent distress. HEENT: PERRL, EOMI. No scleral icterus. No conjunctival pallor. NECK: No JVD. LUNGS: Decreased breath sounds at the bases with few scattered rhonchi and crackles to left base. CARDIOVASCULAR: Regular rate and rhythm. Normal S1 and S2. No murmurs, rubs or gallops. ABDOMEN: Normoactive bowel sounds, soft, nontender, nondistended. EXTREMITIES: No edema. NEUROLOGIC: Awake, alert and oriented x 3. No focal motor deficits. LABORATORY DATA: Morning labs are pending. Blood cultures with no growth to date. ASSESSMENT: The patient is a 47 year old woman with no significant past medical history who was recently treated with a 10 day course of Levaquin for left lower lobe pneumonia with cultures growing Streptococcus pneumoniae who returned to [facility] ED for evaluation of a 2 day history of left-sided pleuritic chest pain and was admitted for management of healthcare-associated pneumonia. PLAN: 1. Healthcare-associated pneumonia. CT imaging reviewed. Input from Dr. Mason greatly appreciated. Continue with current antimicrobials. Input from Dr. Gerard greatly appreciated. Continue with supplemental oxygen and bronchodilators as needed. Continue incentive spirometry. 2. Prophylaxis. GI prophylaxis not indicated as the patient is eating. DVT prophylaxis not indicated as the patient is ambulatory. CODE STATUS: Full code. Meek Esposito MD MTD[facility]
[2017-10-15] MEDS: Linezolid 600 mg in D5W 300 ml 600 MG/300 ML BAG IVPB SCH ×2 (09:22→21:43)
--- NOTE | 2017-10-15 09:30 | PN ---
Copied To: Rahat Burt MD Attending MD: Rahat Burt MD DATE: 10/15/2017 PULMONARY PROGRESS NOTE SUBJECTIVE: The patient was seen and examined at bedside. I also reviewed her chest x-ray, CT scan and discussed the patient with Infectious Disease, especially with Dr. Mason. The patient appears not to be in respiratory distress, but still complaining of dry cough. PHYSICAL EXAMINATION: HEENT: Head normocephalic and atraumatic. NECK: Supple with no jugular vein distentions. CARDIOVASCULAR: S1, S2. No S3. Regular. PULMONARY: Diminished breath sounds at left lung base with dullness to percussion at left base. GI: Soft, nontender. No organomegaly. EXTREMITIES: No pedal edema. No cyanosis. SKIN: No acute skin rash. NEUROLOGIC: No focal deficits. VITAL SIGNS: Temperature is 98; pulse 111; respirations 20; pulse oximetry is 94 on room air, slightly reduced; blood pressure is 125/90. LABORATORY DATA: Next, reviewed today's blood work. WBC is 11.6, hemoglobin of 10.5. Sodium 140, potassium 3.5. There is a shift to the left in differential. ASSESSMENT: 1. Left lower lobe pneumonia. 2. Moderately large left pleural effusion. 3. Rule out empyema. Status post recent pneumonia. PLAN: I have discussed this with Infectious Disease after reviewing the chest x-ray and the CT scan. She has at least a moderate if not large left pleural effusion that should be evaluated. The specimen should be sent for cultures as well as cell counts to rule out empyema. The antibiotics will continue at the present time. We will notify her children's program coordinator, Dr. Meek Esposito of recommendation and if agreed with him, we will call Dr. Ken Reynolds to perform the thoracentesis. Rahat Burt MD
[2017-10-15 19:33] LABS: BODY FLUID TYPE PLEURAL
[2017-10-15 20:30] LABS: BF GROSS APPEARANCE CLEAR (CLEAR)
[2017-10-15 20:31] LABS: BODY FLUID TOTAL COUNT 100 (0-0)
[2017-10-15 20:35] LABS: BODY FLUID MONO/MACROPHAGE 0 % (0-0)
--- NOTE | 2017-10-15 20:43 | US ---
PROCEDURE: Ultrasound guided left thoracentesis. CLINICAL HISTORY: Pneumonia. Left pleural effusion. Evaluate for empyema. PHYSICIAN(S): Ken Reynolds MD. TECHNIQUE: The relative risks and indications of the procedure were explained to the patient and consent obtained. The patient was placed in a sitting position on the stretcher and sonography of the left chest performed. This revealed a small left pleural effusion. A left posterolateral intercostal approach was selected and the area prepped and draped usual sterile fashion. 1% Xylocaine was used to anesthetize the skin and soft tissues. A 7 [place] thoracentesis catheter was trocared into the left pleural cavity and 400 ccof kishor fluid aspirated. Specimens were sent to the lab. IMPRESSION: 1. Ultrasound guided left thoracentesis. 400 cc of amberfluid were aspirated. The appropriate labs were sent.
--- NOTE | 2017-10-15 22:55 | CP.PCM.PN ---
Subjective - Date & Time of Evaluation Date of Evaluation: 10/15/17 Time of Evaluation: 12:40 - Subjective Subjective: No fevers, not in distress, still with left sided chest pain. Still with dry cough. Objective - Vital Signs/Intake and Output Vital Signs (last 24 hours): Temp Pulse Resp BP Pulse Ox 97.6 F 97 H 20 147/86 92 L 10/14/17 06:00 10/14/17 06:00 10/14/17 06:00 10/14/17 06:00 10/14/17 06:00 Intake and Output: 10/14/17 10/14/17 06:59 18:59 Intake Total 300 Balance 300 - Medications Medications: Current Medications Albuterol/Ipratropium (Duoneb 3 Mg/0.5 Mg (3 Ml) Ud) 3 ml IH Q2H PRN PRN Reason: Shortness of Breath Albuterol/Ipratropium (Duoneb 3 Mg/0.5 Mg (3 Ml) Ud) 3 ml IH Q4H GIBSON Last Admin: 10/14/17 16:08 Dose: 3 ml Azithromycin (Zithromax) 500 mg PO DAILY GIBSON PRN Reason: Protocol Last Admin: 10/14/17 10:15 Dose: 500 mg Guaifenesin (Robitussin) 100 mg PO Q4H PRN PRN Reason: Cough Last Admin: 10/13/17 18:15 Dose: 100 mg Piperacillin Sod/Tazobactam Sod (Zosyn 3.375 In Ns 100ml) 100 mls @ 200 mls/hr IVPB Q6 GIBSON PRN Reason: Protocol Stop: 10/20/17 10:01 Last Admin: 10/14/17 12:15 Dose: 200 mls/hr Linezolid (Zyvox 600mg/300ml D5w) 600 mg in 300 mls @ 200 mls/hr IVPB Q12 GIBSON PRN Reason: Protocol Stop: 10/20/17 12:31 Last Admin: 10/14/17 10:15 Dose: 200 mls/hr Ibuprofen (Motrin Tab) 600 mg PO Q6H PRN PRN Reason: Pain, moderate (4-7) Last Admin: 10/14/17 10:48 Dose: 600 mg Tramadol HCl (Ultram) 50 mg PO TID PRN PRN Reason: Pain, moderate (4-7) - Labs Labs: 10/14/17 06:00 10/14/17 06:00 - Constitutional Appears: Non-toxic, Chronically Ill - Head Exam Head Exam: NORMAL INSPECTION - Respiratory Exam Respiratory Exam: Decreased Breath Sounds - Cardiovascular Exam Cardiovascular Exam: +S1, +S2 - GI/Abdominal Exam GI & Abdominal Exam: Soft. absent: Tenderness Assessment and Plan - Assessment and Plan (Free Text) Plan: Assessment Sepsis due to left lower lobe healthcare-associated pneumonia with parapneumonic effusion with possible gram positive cocci and/or gram negative bacilli and/or atypical organisms R/O left sided empyema recent treatment of left lower lobe community-acquired pneumonia with Strep pneumoniae bacteremia morbid obesity with BMI 45 Plan continue Zyvox, Zosyn and Zithromax day 3 - discussed with Dr. Yeager - for diagnostic thoracentesis for pleural fluid analysis and cultures today HIV test is non-reactive will continue to monitor clinically
[2017-10-16] MEDS: Piperacillin/Tazobact 3.375 gm 100 ML IVPB SCH ×5 (00:32→23:10)
[2017-10-16] MEDS: Albuterol-Ipratrop 3 mg / 0.5 (3 ml) UD IH SCH ×9 (03:03→23:28)
[2017-10-16 07:54] LABS: BASO # 0.01 K/mm3 (0.0-2.0); BASO % 0.1 % (0.0-3.0); EOS # 0.2 (0.0-0.7); GRAN # 5.52 (1.4-6.5); GRAN % 65.7 % (50.0-68.0); HEMOGLOBIN 10.1 g/dL (12.0-16.0); LYMPH # 1.7 (1.2-3.4); LYMPH % 19.8 % (22.0-35.0); MEAN CELL VOLUME 84.2 fl (80.0-105.0); MEAN CORPUSCULAR HEMOGLOBIN 27.6 pg (25.0-35.0); MEAN CORPUSCULAR HGB CONC 32.8 g/dl (31.0-37.0); MEAN PLATELET VOLUME 8.4 fl (7.0-11.0); MONO % 12.4 % (1.0-6.0); RBC 3.66 10^6/uL (3.5-6.1); RED CELL DISTRIBUTION WIDTH 14.9 % (11.5-14.5); WHITE BLOOD COUNT 8.4 10^3/ul (4.5-11.0)
[2017-10-16 08:05] LABS: ALBUMIN 3.4 g/dL (3.0-4.8); ALT/SGPT 53 U/L (7-56); AST/SGOT 37 U/L (14-36); BLOOD UREA NITROGEN 4 mg/dL (7-21); CALCIUM 8.5 mg/dL (8.4-10.5); GFR NON-AFRICAN AMERICAN > 60
--- NOTE | 2017-10-16 09:38 | PN ---
SUBJECTIVE: The patient was seen and examined at bedside on the general medical ac. She is s/p diagnostic/therapeutic thoracentesis of her left pulmonary effusion with drainage of 400 mL of kishor fluid. The patient tolerated the procedure well and no complications were noted. This morning she reports feeling well and offers no complaints. OBJECTIVE: VITAL SIGNS: Temperature 98.1, pulse 93, blood pressure 122/82, respiratory rate 20, oxygen saturation 98% on room air. GENERAL: No apparent distress. HEENT: PERRL, EOMI. No scleral icterus. No conjunctival pallor. NECK: No JVD. LUNGS: Decreased breath sounds to the left base with few scattered rhonchi. CARDIOVASCULAR: Regular rate and rhythm. Normal S1 and S2. No murmurs, rubs or gallops. ABDOMEN: Normoactive bowel sounds. Soft, nontender and nondistended. EXTREMITIES: No edema. NEUROLOGIC: Awake, alert and oriented x 3. No focal motor deficits. LABORATORY DATA: WBC 8.4, hemoglobin 10.1, hematocrit 31, platelets 367. Chemistry reviewed and unremarkable. Blood cultures negative. ASSESSMENT: The patient is a 47-year-old woman with no significant past medical history who was recently treated with a 10 day course of Levaquin for left lower lobe pneumonia with cultures growing Streptococcus pneumoniae who returned to [facility] ED for evaluation of a 2 day history of left-sided pleuritic chest pain and was admitted for management of healthcare-associated pneumonia. PLAN: 1. Healthcare-associated pneumonia. Input from Dr. Mason greatly appreciated. Continue with current antimicrobials. Input from Dr. Burt also noted and greatly appreciated. Continue with supplemental oxygen and bronchodilators as needed. The patient is s/p thoracentesis, and we will await fluid analysis. A post-thoracentesis CXR is pending. 2. Prophylaxis. GI prophylaxis is not indicated as the patient is eating. DVT prophylaxis is not indicated as the patient is ambulatory. CODE STATUS: Full code. Meek Esposito MD SHELBI
[2017-10-16] MEDS: guaiFENesin 100 mg/5 ml Syrup UD PO PRN (10:08)
[2017-10-16] MEDS: Linezolid 600 mg in D5W 300 ml 600 MG/300 ML BAG IVPB SCH ×2 (10:08→21:12)
--- NOTE | 2017-10-16 10:42 | RAD ---
HISTORY: COMPARISON: 10/13/2017. TECHNIQUE: Chest PA and lateral FINDINGS: LINES AND TUBES: None. LUNG AND PLEURA: There is compressive atelectasis in the right lower lobe. The left lung is clear. There is a large right pleural effusion. There is interval near complete resolution of left pleural effusion. No pneumothorax. HEART AND MEDIASTINUM: The heart is not enlarged. The hilar and mediastinal contours are within normal limits. SKELETAL STRUCTURES: The bony structures are within normal limits for the patient's age. VISUALIZED UPPER ABDOMEN: Normal. OTHER FINDINGS: None. IMPRESSION: Status post left thoracentesis, near complete resolution of left pleural effusion. No pneumothorax. Interval development of large right pleural effusion with compressive atelectasis of the right lung.
--- NOTE | 2017-10-16 11:11 | PN ---
Copied To: Harrison Gerard MD Attending MD: Harrison Gerard MD DATE: 10/16/2017 PULMONARY PROGRESS NOTE SUBJECTIVE: The patient is comfortable, has no acute distress. She is status post diagnostic thoracentesis, 400 mL of kishor-colored fluid was removed. The cultures, chemistries and cytology are not yet available. The patient feels well and has no respiratory distress. PHYSICAL EXAMINATION: GENERAL: The patient is resting comfortably. VITAL SIGNS: She remains afebrile. HEENT: Normocephalic, atraumatic. NECK: Supple. CARDIOVASCULAR: Regular rhythm. PULMONARY: Decreased breath sounds at the left base, rhonchi throughout. ABDOMEN: Soft. Bowel sounds normoactive. : Within normal limits EXTREMITIES: Reveal no clubbing, cyanosis or edema. SKIN: Dry; intact LABORATORY STUDIES: Followup chest x-ray status post thoracentesis shows a significant residual right pleural effusion. ASSESSMENT: Pneumonia, large right pleural effusion. Although, a diagnostic thoracentesis has already been performed and color seems to be kishor in nature. The exact etiology of this effusion has not yet been identified. We will need the cytology, chemistries, microbiology, etc. to determine the etiology. It does however clinically appear to be a parapneumonic effusion, cannot exclude other infiltrates underneath this effusion. The patient is clinically stable. There is no signs of sepsis or any deterioration whatsoever. PLAN: We will continue to monitor closely while she is on antibiotics. Discuss with the Infectious Disease specialist. If x-ray fails to show significant decrease in effusion and/or infiltrate, further diagnostics will be necessary, perhaps chest tube drainage need to be considered if there is no decrease in the effusion size. One was keep in mind however that the patient is clinically stable. We will need to discuss this at length with both the primary medical doctor, infectious disease doctor and our group if the effusion and pneumonia fails to resolve. We will follow closely with you and decide on the need for further intervention based on clinical status. Harrison Gerard MD SHE[facility]
--- NOTE | 2017-10-16 15:06 | PN ---
Copied To: Estuardo Calderón MD Attending MD: Estuardo Calderón MD DATE: 10/16/2017 SUBJECTIVE: The patient is in bed, in no acute distress, nontoxic. PHYSICAL EXAMINATION: VITAL SIGNS: On exam, temperature is 98, blood pressure is 120/80, respiratory rate of 18. HEENT: Unremarkable. NECK: Supple. LUNGS: Have decreased breath sounds. HEART: Normal S1, S2. ABDOMEN: Soft, nontender. LABORATORY DATA: Laboratory examination reveals white count of 8.4, hemoglobin of 10, platelets of 367. Chemistries are noted and procalcitonin noted and serology is noted. Human immunodeficiency virus is negative. Urine for Legionella antigen is negative. Microbiology reveals the blood cultures are negative. ASSESSMENT AND PLAN: A 47-year-old female seen in room 575, bed 2 with sepsis due to left lower lobe healthcare-associated pneumonia, parapneumonic effusion and left-sided empyema must be ruled out, on Zyvox, Zosyn and Zithromax day #4 and thus far, the cultures are negative and we will follow closely with you. Review of orders confirms Zosyn and Zyvox to be active. We will follow with you. Estuardo Calderón MD
[2017-10-17] MEDS: Albuterol-Ipratrop 3 mg / 0.5 (3 ml) UD IH SCH ×5 (03:32→15:45)
[2017-10-17] MEDS: Piperacillin/Tazobact 3.375 gm 100 ML IVPB SCH ×4 (06:27→23:25)
[2017-10-17 06:41] LABS: BASO # 0.02 K/mm3 (0.0-2.0); BASO % 0.2 % (0.0-3.0); EOS # 0.2 (0.0-0.7); EOS % 2.1 % (1.5-5.0); GRAN # 6.48 (1.4-6.5); GRAN % 70.1 % (50.0-68.0); HEMOGLOBIN 9.7 g/dL (12.0-16.0); LYMPH # 1.6 (1.2-3.4); LYMPH % 17.3 % (22.0-35.0); MEAN CELL VOLUME 84.9 fl (80.0-105.0); MEAN CORPUSCULAR HEMOGLOBIN 27.1 pg (25.0-35.0); MEAN CORPUSCULAR HGB CONC 31.9 g/dl (31.0-37.0); MEAN PLATELET VOLUME 8.5 fl (7.0-11.0); MONO % 10.3 % (1.0-6.0); RBC 3.58 10^6/uL (3.5-6.1); RED CELL DISTRIBUTION WIDTH 14.7 % (11.5-14.5); WHITE BLOOD COUNT 9.2 10^3/ul (4.5-11.0)
[2017-10-17 07:21] LABS: ALBUMIN 3.3 g/dL (3.0-4.8); ALT/SGPT 67 U/L (7-56); AST/SGOT 54 U/L (14-36); BLOOD UREA NITROGEN 5 mg/dL (7-21); CALCIUM 8.5 mg/dL (8.4-10.5); GFR NON-AFRICAN AMERICAN > 60
[2017-10-17] MEDS: guaiFENesin 100 mg/5 ml Syrup UD PO PRN (09:14)
[2017-10-17] MEDS: Linezolid 600 mg in D5W 300 ml 600 MG/300 ML BAG IVPB SCH (09:14)
--- NOTE | 2017-10-17 14:45 | PN ---
SUBJECTIVE: The patient was seen and examined at bedside on the general medical ac. No acute events overnight. She remains afebrile and hemodynamically stable. The patient endorses improvement in her respiratory status since admission but continues to endorse exertional dyspnea. Otherwise, she denies fevers, chills, rigors, chest pain, palpitations or hemoptysis. OBJECTIVE: VITAL SIGNS: Temperature 98.2, pulse 93, blood pressure 131/83, respiratory rate 20, oxygen saturation 96% on 2 L nasal cannula. GENERAL: No apparent distress. HEENT: PERRL, EOMI. No scleral icterus. No conjunctival pallor. NECK: No JVD. LUNGS: Decreased breath sounds at the bases with scattered rhonchi. CARDIOVASCULAR: Regular rate and rhythm. Normal S1 and S2. No murmurs, rubs or gallops. ABDOMEN: Normoactive bowel sounds. Soft, nontender and nondistended. EXTREMITIES: No edema. NEUROLOGIC: Awake, alert and oriented x 3. No focal motor deficits. LABORATORY DATA: WBC 9.2 with 70% neutrophils, hemoglobin 9.7, hematocrit 30, platelets 366. Chemistry reviewed and unremarkable. Blood cultures have no growth to date. ASSESSMENT: The patient is a 47-year-old woman with no significant past medical history who was recently treated with a 10 day course of Levaquin for left lower lobe pneumonia, with cultures growing Streptococcus pneumoniae, who returned to [facility] ED for evaluation of a 2 day history of left-sided pleuritic chest pain and was admitted for management of healthcare-associated pneumonia. PLAN: 1. Healthcare-associated pneumonia. Input from Dr. Mason appreciated. Continue with current antimicrobials. Input from Dr. Gerard also noted and appreciated. Continue with supplemental oxygen and bronchodilators as needed. The patient is s/p thoracentesis with fluid analysis pending. Of note, a post thoracentesis chest x-ray demonstrated a new effusion on the right of unclear etiology. A procalcitonin level has been sent. We will give Lasix 40 mg IV x 1. If the right-sided effusion does not improve, the patient will require repeat thoracentesis and fluid analysis of the right-sided effusion. 2. Prophylaxis. GI prophylaxis is not indicated as the patient is eating. DVT prophylaxis is not indicated as the patient is ambulatory. CODE STATUS: Full code. Meek Esposito MD [facility] # [id number] [facility]
--- NOTE | 2017-10-17 15:15 | PN ---
Copied To: Estuardo Calderón MD Attending MD: Estuardo Calderón MD DATE: 10/17/2017 SUBJECTIVE: The patient is in bed, in no acute distress, was seen earlier. She is comfortable. She has the oxygen on. PHYSICAL EXAMINATION: VITAL SIGNS: On exam, temperature is 98, blood pressure is 130/80, respiratory rate of 18 and saturation 98% with a nasal cannula. HEENT: Examination of HEENT is unremarkable. NECK: Supple. LUNGS: Have decreased breath sounds. HEART: Normal S1, S2. ABDOMEN: Soft, nontender. LABORATORY DATA: Laboratory examination reveals the MRSA is not detected. Nares is negative and the blood cultures are negative. The patient had a chest x-ray yesterday, which reveals a compressive atelectasis of right lower lobe. The left lung is clear. There is a large right pleural effusion. Dr. Meek Esposito's note from yesterday is appreciated, which says the patient had 10-day course of Levaquin for left lower lobe pneumonia. Cultures growing Strep pneumoniae. Returned with a left-sided pleural chest pain, admitted for management of healthcare-associated pneumonia. The Strep pneumoniae blood cultures from 10/02/2017 is noted. Relatively sensitive organism. Review of orders reveals the patient is on Zosyn and linezolid. ASSESSMENT AND PLAN: A 47-year-old female in room 575, bed 2 with sepsis with a left lower lobe healthcare-associated pneumonia with parapneumonic effusion with a left-sided empyema. The patient had Streptococcus pneumoniae bacteremia, now with an negative methicillin-resistant Staphylococcus aureus nares makes the healthcare-associated pneumonia with methicillin-resistant Staphylococcus aureus less likely. We will discontinue the Zyvox and today is day #5 of Zosyn. We will check on a repeat procalcitonin, the initial one from 10/13/2017 is 0.05. We will repeat a procalcitonin today. Discontinue Zyvox. We will continue with the piperacillin and tazobactam pending repeat procalcitonin and we will follow with you. The patient did have a Streptococcus pneumoniae bacteremia from 10/02/2017. Human immunodeficiency virus was negative and urine for Legionella antigen was negative. The patient is anemic. LFT elevations are noted. Normal alkaline phosphatase. Should have a multiple myeloma workup. Estuardo Calderón MD [facility] # [id number]
[2017-10-17 17:09] LABS: TOTAL PROTEIN PLEURAL FLUID 4.7 g/dL
[2017-10-17] MEDS: Levalbuterol 0.63 MG/3 ML Inhal Soln UD IH SCH ×2 (19:27→23:54)
[2017-10-18] MEDS: Levalbuterol 0.63 MG/3 ML Inhal Soln UD IH SCH ×5 (03:38→20:21)
[2017-10-18 05:58] LABS: URINE BILIRUBIN NEGATIVE (NEGATIVE); URINE BLOOD NEGATIVE (NEGATIVE); URINE GLUCOSE (UA) NEGATIVE (NEGATIVE); URINE LEUKOCYTE ESTERASE NEGATIVE Leu/uL (NEGATIVE); URINE PROTEIN NEGATIVE mg/dL (<30 mg/dL); URINE UROBILINOGEN 0.2 E.U./dL (<1 E.U./dL)
[2017-10-18 06:03] LABS: URINE APPEARANCE CLEAR (CLEAR); URINE COLOR YELLOW (YELLOW)
[2017-10-18] MEDS: Piperacillin/Tazobact 3.375 gm 100 ML IVPB SCH ×4 (06:10→23:00)
[2017-10-18 07:03] LABS: BASO # 0.02 K/mm3 (0.0-2.0); BASO % 0.3 % (0.0-3.0); EOS # 0.2 (0.0-0.7); EOS % 2.1 % (1.5-5.0); GRAN # 5.04 (1.4-6.5); GRAN % 67.3 % (50.0-68.0); HEMOGLOBIN 9.6 g/dL (12.0-16.0); LYMPH # 1.7 (1.2-3.4); LYMPH % 22.1 % (22.0-35.0); MEAN CELL VOLUME 84.6 fl (80.0-105.0); MEAN CORPUSCULAR HEMOGLOBIN 26.9 pg (25.0-35.0); MEAN CORPUSCULAR HGB CONC 31.8 g/dl (31.0-37.0); MEAN PLATELET VOLUME 8.3 fl (7.0-11.0); MONO # 0.6 (0.1-0.6); MONO % 8.2 % (1.0-6.0); RBC 3.57 10^6/uL (3.5-6.1); RED CELL DISTRIBUTION WIDTH 14.7 % (11.5-14.5); WHITE BLOOD COUNT 7.5 10^3/ul (4.5-11.0)
[2017-10-18 07:16] LABS: ALB/GLOB RATIO 0.9 (1.1-1.8); ALBUMIN 3.4 g/dL (3.0-4.8); ALT/SGPT 67 U/L (7-56); AST/SGOT 50 U/L (14-36); BLOOD UREA NITROGEN 4 mg/dL (7-21); CALCIUM 8.8 mg/dL (8.4-10.5); GFR NON-AFRICAN AMERICAN > 60
--- NOTE | 2017-10-18 07:31 | PN ---
Copied To: Nelson Berger MD Attending MD: Nelson Berger MD DATE: 10/18/2017 PULMONARY NOTE SUBJECTIVE: The patient appears comfortable this morning. She is not short of breath at rest. PHYSICAL EXAMINATION VITAL SIGNS: Temperature is 98.3, pulse this morning is approximately 88, respirations 18, blood pressure 135/82. Oxygen saturation on nasal cannula is 97%. HEENT: Normocephalic, atraumatic. No JVD. CARDIOVASCULAR: Positive S1, S2. No S3 gallop. LUNGS: Decreased breath sounds at the bases. Minimal rhonchi. No wheezing. EXTREMITIES: No clubbing, cyanosis or edema. Calves are nontender to palpation. GI: Abdomen is soft, nontender and nondistended. Bowel sounds are positive. SKIN: No acute rash. NEUROLOGIC: Limited at the present time. IMPRESSION: 1. Healthcare-associated pneumonia. 2. Left pleural effusion. Status post thoracentesis. 3. Leukocytosis - resolved. 4. Anemia. PLAN: The patient appears comfortable this morning. She is not short of breath at rest. She does state to feeling better overall. On physical exam, there is no significant bronchospasm noted. In addition, there is no significant alveolar-arterial gradient. I will continue with the current nebulizer treatments for now. The patient remains on antibiotic therapy - as per Infectious Disease. Temperatures have fully resolved. The leukocytosis has also fully resolved. The patient did have a left thoracentesis. Final results are pending. I have also ordered a chest x-ray - to be done this morning. Additional intervention would be based on those results. Clinical status of the patient is improved overall. I will discuss the above with Dr. Esposito. Nelson Berger MD [facility]
--- NOTE | 2017-10-18 09:29 | RAD ---
Date of service: 10/18/2017 HISTORY: follow up COMPARISON: 10/13/2017 TECHNIQUE: Chest PA and lateral FINDINGS: LUNGS: No active pulmonary disease. PLEURA: There is a large left-sided pleural effusion CARDIOVASCULAR: Normal. OSSEOUS STRUCTURES: No significant abnormalities. VISUALIZED UPPER ABDOMEN: Normal. OTHER FINDINGS: None. IMPRESSION: Large left-sided pleural effusion
--- NOTE | 2017-10-18 09:48 | PN ---
SUBJECTIVE: The patient was seen and examined at bedside on the general medical ac. No acute events overnight. She remains afebrile and hemodynamically stable. She continues to endorse pleuritic chest pain, cough and mild dyspnea with exertion. OBJECTIVE: VITAL SIGNS: Temperature 98.3, pulse 100, blood pressure 135/82, respiratory rate 20, oxygen saturation 97% on room air. GENERAL: No apparent distress. HEENT: PERRL, EOMI. No scleral icterus. No conjunctival pallor. NECK: No JVD. LUNGS: Decreased breath sounds at the bases with a few scattered rhonchi. CARDIOVASCULAR: Regular rate and rhythm. Normal S1, S2. No murmurs, rubs or gallops. ABDOMEN: Normoactive bowel sounds. Soft, nontender, nondistended. EXTREMITIES: No edema. NEUROLOGIC: Awake, alert and oriented x 3. No focal motor deficits. LABORATORY DATA: WBC 7.5 with 67% neutrophils, hemoglobin 9.6, hematocrit 30, platelets 441. Chemistry reviewed and unremarkable. Blood cultures with no growth to date. Procalcitonin less than 0.05. ASSESSMENT: The patient is a 47-year-old woman with no significant past medical history who was recently treated with a 10 day course of Levaquin for a left lower lobe pneumonia, with cultures growing Streptococcus pneumoniae, who returned to [facility] ED for evaluation of a 2 day history of left-sided pleuritic chest pain and was admitted for management of healthcare-associated pneumonia. PLAN: 1. Healthcare-associated pneumonia. Input from Dr. Mason appreciated. Continue with current antimicrobials. Input from Dr. Berger noted and greatly appreciated and the repeat CXR demonstrates worsening left-sided effusion. We will speak with Dr. Ken Reynolds regarding placement of chest tube. 2. Prophylaxis. GI prophylaxis not indicated as the patient is eating. DVT prophylaxis is not indicated as the patient is ambulatory. CODE STATUS: Full code. Meek Esposito MD [facility]
[2017-10-18] MEDS: Acetylcysteine 20% Inhal Soln (4ml) IH SCH ×2 (11:31→20:21)
--- NOTE | 2017-10-19 02:29 | PN ---
Copied To: Estuardo Calderón MD Attending MD: Estuardo Calderón MD DATE: 10/18/2017 SUBJECTIVE: The patient is seen earlier today in room 575, bed two. She is doing much better. No fevers and respirations are much improved. PHYSICAL EXAMINATION: VITAL SIGNS: Temperature is 98, blood pressure is 120/90, respiratory of 20, heart rate of 101. HEENT: Examination of HEENT is unremarkable. NECK: Supple. LUNGS: Have decreased breath sounds. HEART: Normal S1, S2. ABDOMEN: Soft. LABORATORY EXAMINATION: Reveals a white count is down to 7.5, hemoglobin of 9, platelets of 441. The sed rate is 130. Blood gases are noted. Chemistries reveals a procalcitonin of 0.05 and that is a second procalcitonin, the first one from the 10/13/2017 was also less than 0.05. The patient's LFTs are mildly elevated C-reactive protein is elevated at 126.5 and urinalysis is noted to be unremarkable and no proteins are noted, negative leukocyte esterase and completely negative urinalysis and the pleural fluid is reviewed. LDH is 555 consistent with an exudate and the pH is 8. Protein is 4.7 and also consistent with an exudate. The patient's urine for Legionella antigen is negative. HIV is negative. Microbiology reveals pleural fluid cultures have no growth, and blood cultures are no growth. The nasal MRSA is negative. The screen and protein electrophoresis is pending and the patient is currently on Zosyn. Dr. Meek Esposito's note is reviewed. Dr. Berger's progress note is reviewed. Chest x-ray from today is also reviewed. ASSESSMENT AND PLAN: This is a 47-year-old female seen earlier. The patient had sepsis of the left lower lobe healthcare-associated pneumonia with parapneumonic effusion left-sided empyema, had strep pneumonia bacteremia. Had negative methicillin-resistant Staphylococcus aureus nares, currently on day #6 of Zosyn. Repeat procalcitonin is negative. Concerned about extremely high sedimentation rate and C-reactive protein and sedimentation rate of over 130 and C-reactive protein of 126.50, both extremely high. Vasculitis workup in progress. Serum protein electrophoresis in progress. We will follow closely with you. Maybe able to discontinue the Zosyn in the next 24 hours. Estuardo Calderón MD
[2017-10-19] MEDS: Levalbuterol 0.63 MG/3 ML Inhal Soln UD IH SCH ×6 (03:31→20:40)
[2017-10-19] MEDS: Piperacillin/Tazobact 3.375 gm 100 ML IVPB SCH ×3 (05:17→18:25)
[2017-10-19] MEDS: Sodium Chloride 0.45% 1,000 ML IV SCH ×2 (05:18→18:35)
[2017-10-19 06:57] LABS: BASO # 0.02 K/mm3 (0.0-2.0); BASO % 0.3 % (0.0-3.0); EOS # 0.2 (0.0-0.7); EOS % 2.8 % (1.5-5.0); GRAN # 5.46 (1.4-6.5); GRAN % 72.3 % (50.0-68.0); LYMPH # 1.3 (1.2-3.4); LYMPH % 17.4 % (22.0-35.0); MEAN CORPUSCULAR HEMOGLOBIN 26.7 pg (25.0-35.0); MEAN CORPUSCULAR HGB CONC 31.8 g/dl (31.0-37.0); MEAN PLATELET VOLUME 8.4 fl (7.0-11.0); MONO # 0.5 (0.1-0.6); MONO % 7.2 % (1.0-6.0); RBC 3.74 10^6/uL (3.5-6.1); RED CELL DISTRIBUTION WIDTH 14.6 % (11.5-14.5); WHITE BLOOD COUNT 7.5 10^3/ul (4.5-11.0)
--- NOTE | 2017-10-19 07:15 | PN ---
Copied To: Nelson Berger MD Attending MD: Nelson Berger MD DATE: 10/19/2017 PULMONARY NOTE SUBJECTIVE: The patient appears comfortable this morning. She is out of bed, sitting in the chair. She is not short of breath at rest. PHYSICAL EXAMINATION: VITAL SIGNS: Temperature is 98.5, pulse this morning is approximately 88, respiratory rate 18, last blood pressure recorded is 127/77. Oxygen saturation on nasal cannula is 96%. HEENT: Normocephalic, atraumatic. No JVD. CARDIOVASCULAR: Positive S1, S2. No S3 gallop. LUNGS: Decreased breath sounds at the bases (left worse than right). Less rhonchi. No wheezing. EXTREMITIES: No clubbing, cyanosis, or edema. Calves are nontender to palpation. GASTROINTESTINAL: Abdomen is soft, nontender, and nondistended. Bowel sounds are positive. SKIN: No acute rash. NEUROLOGIC: Limited at the present time. IMPRESSION: 1. Healthcare-associated pneumonia. 2. Large left pleural effusion. Status post thoracentesis. 3. Leukocytosis - resolved. 4. Anemia. PLAN: The patient appears comfortable this morning. She is not short of breath at rest. She does state to feeling better overall. I did discuss the case with the night nurse at length. The night nurse stated that the patient had a good night. On physical exam, there is certainly less bronchospasm noted. I will continue with the current nebulizer treatments and chest percussion therapy for now.. I would also continue with the current antibiotic therapy - as per Infectious Disease. Input by Dr. Calderón is noted. Again, I did discuss the case with the nurse and the patient at length. The patient is for chest tube insertion later today. The clinical status of the patient has certainly improved - while in the hospital. There has been resolution of her temperatures. There has also been resolution of the leukocytosis. Rheumatologic workup is in progress. I did discuss the case with Dr. Esposito at length yesterday. I will also discuss the case with him this morning. Nelson Berger MD [facility] # [id number] [facility]
[2017-10-19 07:25] LABS: ALBUMIN 3.6 g/dL (3.0-4.8); ALT/SGPT 59 U/L (7-56); AST/SGOT 60 U/L (14-36); BLOOD UREA NITROGEN 5 mg/dL (7-21); CALCIUM 8.8 mg/dL (8.4-10.5); GFR NON-AFRICAN AMERICAN > 60
[2017-10-19] MEDS: Acetylcysteine 20% Inhal Soln (4ml) IH SCH ×2 (07:25→20:40)
--- NOTE | 2017-10-19 08:35 | PN ---
SUBJECTIVE: The patient was seen and examined at bedside on the general medical ac. No acute events overnight. She remains afebrile and hemodynamically stable. The patient continues to endorse left-sided pleuritic chest pain with cough and mild exertional dyspnea. She was advised that given the recurrence of her pleural effusion, she will likely require repeat thoracentesis and possible chest tube placement and the patient is amendable to this plan. OBJECTIVE: VITAL SIGNS: Temperature 98, pulse 100, blood pressure 120/77, respiratory rate 20, oxygen saturation 96% on 2 L nasal cannula. GENERAL: No apparent distress. HEENT: PERRL, EOMI. No scleral icterus. No conjunctival pallor. NECK: No JVD. LUNGS: Decreased breath sounds at the bases with few scattered rhonchi. CARDIOVASCULAR: Regular rate and rhythm. Normal S1 and S2. No murmurs, rubs or gallops. ABDOMEN: Normoactive bowel sounds. Soft, nontender and nondistended. EXTREMITIES: No edema. NEUROLOGIC: Awake, alert and oriented x 3. No focal motor deficits. LABORATORY DATA: WBC 7.5, hemoglobin 10, hematocrit 31, platelets 456. Chemistry reviewed and unremarkable. ASSESSMENT: The patient is a 47-year-old woman with no significant past medical history who was recently treated with a 10 day course of Levaquin for left lower lobe pneumonia, with cultures growing Streptococcus pneumoniae, who returned to [facility] ED for evaluation of a 2 day history of left-sided pleuritic chest pain and was admitted for management of healthcare-associated pneumonia. PLAN: 1. Healthcare-associated pneumonia. Input from Dr. Calderón greatly appreciated. Continue with current antimicrobials. Input from Dr. Berger noted and greatly appreciated. Continue with supplemental oxygen and bronchodilators as needed. The patient is pending reevaluation with Dr. Ken Reynolds for possible chest tube placement. 2. Prophylaxis. GI prophylaxis is not indicated as the patient is eating. DVT prophylaxis is not indicated as the patient is ambulatory. CODE STATUS: Full code. Meek Esposito MD [facility]
[2017-10-19] MEDS ORDERED: Midazolam 2 MG/2 ML VIAL ONE (09:53)
[2017-10-19] MEDS ORDERED: Lidocaine Hydrochloride 1% 10 ML ONE (09:53)
[2017-10-19] MEDS ORDERED: Midazolam 2 MG/2 ML VIAL IVP ONE (11:32)
--- NOTE | 2017-10-19 15:36 | PN ---
Copied To: Estuardo Calderón MD Attending MD: Estuardo Calderón MD DATE: 10/19/2017 SUBJECTIVE: Patient is in bed, in no acute distress. PHYSICAL EXAMINATION: VITAL SIGNS: On exam, temperature is 98, blood pressure is 130/80, respiratory rate 18. HEENT: Examination of HEENT is unremarkable. NECK: Supple. LUNGS: Have decreased breath sounds. HEART: Normal S1, S2. ABDOMEN: Soft, nontender. LABORATORY DATA: Laboratory examination reveals a white count of 7.5. Sed rate is 130. Chemistries are noted. Repeat procalcitonin is 0.05. Urinalysis is noted and HIV is negative. Urine for Legionella antigen is negative. Microbiology and all cultures are negative. Procalcitonin is negative and review of orders reveals the patient to be on Zosyn. Dr. Berger's note is reviewed. ASSESSMENT AND PLAN: A 47-year-old female with morbid obesity with body mass index of 41 and had a Streptococcus pneumonia bacteremia with a strep pneumonia complicated by para pneumonic effusion and empyema that has loculated effusion. Currently on Zosyn, may need decortication as discussed with Dr. Berger. The patient's CAT scan and x-ray was reviewed and I am concerned about underlying immunological deficiencies and the patient's human immunodeficiency virus is negative. Multiple myeloma workup should take place and should do a complement levels and immunological workup. Today is day #7 of Zosyn. Estuardo Calderón MD
--- NOTE | 2017-10-19 17:49 | CT ---
PROCEDURE: CT-guided left chest tube placement HISTORY: Left lower lobe pneumonia. Left pleural effusion with loculation. Needs drainage. PHYSICIAN(S): Ken Reynolds MD. TECHNIQUE: The relative risks and indications for the procedure were explained to the patient and informed consent obtained. The patient was placed in a slight right decubitus position on the CT scanner and preliminary images through the mid to lower chest performed. This revealed a small to moderate left pleural effusion with left lower lobe collapse.. A left posterior and lateral approach was selected and the area prepped/draped in the usual sterile fashion. Conscious sedation and monitoring were provided throughout the procedure by nurse. An 18-gauge needle was advanced into the left pleural space and 6 cc of straw-colored fluid aspirated. 0.035 J wire was coiled in the left pleural space. Sequential dilatation was performed with subsequent placement of a 12 Welsh drain. Only 60 cc of kishor fluid was aspirated. The left pleural effusion is loculated. The tube was flushed and secured. It was placed to 30 cm low continuous suction IMPRESSION: 1. CT-guided left chest tube placement. 2. Incomplete drainage of loculated left pleural effusion. TPA infusions may be attempted
[2017-10-20] MEDS: Levalbuterol 0.63 MG/3 ML Inhal Soln UD IH SCH ×6 (00:29→23:18)
[2017-10-20] MEDS: Piperacillin/Tazobact 3.375 gm 100 ML IVPB SCH ×2 (06:45)
[2017-10-20 06:58] LABS: BASO # 0.03 K/mm3 (0.0-2.0); BASO % 0.3 % (0.0-3.0); EOS # 0.1 (0.0-0.7); EOS % 1.5 % (1.5-5.0); GRAN # 6.38 (1.4-6.5); GRAN % 72.3 % (50.0-68.0); HEMOGLOBIN 11.4 g/dL (12.0-16.0); LYMPH # 1.7 (1.2-3.4); LYMPH % 19.7 % (22.0-35.0); MEAN CELL VOLUME 84.9 fl (80.0-105.0); MEAN CORPUSCULAR HGB CONC 31.8 g/dl (31.0-37.0); MEAN PLATELET VOLUME 8.2 fl (7.0-11.0); MONO # 0.6 (0.1-0.6); MONO % 6.2 % (1.0-6.0); RBC 4.23 10^6/uL (3.5-6.1); RED CELL DISTRIBUTION WIDTH 14.6 % (11.5-14.5); WHITE BLOOD COUNT 8.8 10^3/ul (4.5-11.0)
[2017-10-20 07:36] LABS: ALBUMIN 3.7 g/dL (3.0-4.8); ALT/SGPT 44 U/L (7-56); AST/SGOT 30 U/L (14-36); BLOOD UREA NITROGEN 5 mg/dL (7-21); CALCIUM 8.7 mg/dL (8.4-10.5); GFR NON-AFRICAN AMERICAN > 60
[2017-10-20] MEDS: Acetylcysteine 20% Inhal Soln (4ml) IH SCH ×2 (07:42→20:15)
--- NOTE | 2017-10-20 08:25 | PN ---
Copied To: Nelson Berger MD Attending MD: Nelson Berger MD DATE: 10/20/2017 PULMONARY NOTE SUBJECTIVE: The patient appears comfortable this morning. She is not short of breath at rest. PHYSICAL EXAMINATION: VITAL SIGNS: Temperature is 98.5, pulse is 80, respirations 16, blood pressure 141/90. Oxygen saturation on nasal cannula is 97%. HEENT: Normocephalic, atraumatic. No JVD. CARDIOVASCULAR: Positive S1, S2. No S3 gallop. LUNGS: Improved breath sounds - left base. Very minimal/less rhonchi. No wheezing. EXTREMITIES: No clubbing, cyanosis, or edema. Calves are nontender to palpation. GASTROINTESTINAL: Abdomen is soft, nontender, and nondistended. Bowel sounds are positive. SKIN: No acute rash. NEUROLOGIC: Limited at the present time. IMPRESSION: 1. Healthcare-associated pneumonia. 2. Large loculated left pleural effusion. 3. Leukocytosis - resolved. 4. Anemia. PLAN: The patient appears much more comfortable this morning. She is not short of breath at rest. She does state to feeling much better overall. Chest tube was placed by Dr. Ken Reynolds yesterday. However, there was very minimal drainage after the chest tube insertion. TPA was then ordered by Dr. Reynolds - with excellent results. Total drainage so far has been approximately 1.5 liters. On physical exam, there is no significant bronchospasm noted. In addition, the oxygen saturation on nasal cannula is now 97%. The patient remains on antibiotic therapy - as per Infectious Disease. I did discuss the case with Dr. Calderón multiple times yesterday. Clinical status of the patient is certainly improved - compared to the initial presentation. I will discuss the above with Dr. Reynolds and Dr. Esposito this morning. Nelson Berger MD [facility]
--- NOTE | 2017-10-20 10:18 | RAD ---
Date of service: 10/20/2017 HISTORY: lt chest tube COMPARISON: 10/18/2017 FINDINGS: LUNGS: No active pulmonary disease. PLEURA: There is a new left-sided chest tube. There is a decrease in the left effusion. CARDIOVASCULAR: Normal. OSSEOUS STRUCTURES: No significant abnormalities. VISUALIZED UPPER ABDOMEN: Normal. OTHER FINDINGS: None. IMPRESSION: There is a new left-sided chest tube. There is a decrease in the left effusion.
--- NOTE | 2017-10-20 10:43 | PN ---
Copied To: Estuardo Calderón MD Attending MD: Estuardo Calderón MD DATE: 10/20/2017 SUBJECTIVE: The patient is seen earlier today. She is comfortable, has a chest tube in. PHYSICAL EXAMINATION: VITAL SIGNS: On exam, temperature is 98, blood pressure is 140/90, respiratory rate of 18, heart rate of 100. HEENT: Examination of HEENT is unremarkable. NECK: Supple. LUNGS: Have decreased breath sounds. HEART: Normal S1, S2. ABDOMEN: Soft. LABORATORY DATA: Laboratory examination reveals the patient's white count is 8, hemoglobin of 11, platelets of 558. Chemistries reveals a BUN of 5, creatinine of 0.7. Procalcitonin is less than 0.05. Urinalysis is noted and pleural fluid is noted to have 60% lymphocytes and 40% neutrophils with glucose 93, LDH of 555 and protein is 4.7. Immunology is noted and serology, HIV is negative and urine for Legionella antigen is negative and WALLACE and SPEP is pending. A Protein S3, PR3 is negative. Myeloperoxidase antibody is negative and Dr. Berger's note from today is reviewed. ASSESSMENT AND PLAN: A 47-year-old female with morbid obesity, body mass index of 41, had strep pneumonia bacteremia with strep pneumonia complicated with parapneumonic effusion and empyema, loculated effusion. Currently on Zosyn, status post chest tube placement with significant drainage, on day #7 of Zosyn. We will check on the cultures from the chest tube cultures which was done yesterday by Dr. Ken Reynolds. Case discussed with Dr. Berger/ His input is greatly appreciated and we will follow closely with you. We will continue the Zosyn pending cultures. Estuardo Calderón MD
[2017-10-20 11:14] LABS: COMPLEMENT C4 53.9 mg/dL (14.0-44.0)
--- NOTE | 2017-10-20 13:09 | PN ---
SUBJECTIVE: The patient was seen and examined at bedside on the general medical ac. No acute events overnight. She is status post CT-guided placement of left-sided chest tube given her presentation with healthcare-associated pneumonia with a large left pleural effusion. The patient initially had minimal drainage from her chest tube however after administration of tPA via the chest tube she was noted to have approximately 1.5 liters of drainage. This morning she reports significant improvement in her respiratory status and denies fevers, chills, rigors or pain at the chest tube insertion site and overall offers no complaints. OBJECTIVE: VITAL SIGNS: Temperature 98.5, pulse 79, blood pressure 141/82, respiratory rate 18, oxygen saturation 97% on 3 liters nasal cannula. GENERAL: No apparent distress. HEENT: PERRL, EOMI. No scleral icterus. No conjunctival pallor. NECK: No JVD. LUNGS: Decreased breath sounds at the bases with minimal rhonchi. CHEST: Chest tube in place with site appearing clean, dry and intact. CARDIOVASCULAR: Regular rate and rhythm. Normal S1 and S2. No murmurs, rubs or gallops. ABDOMEN: Normoactive bowel sounds, soft, nontender, nondistended. EXTREMITIES: No edema. NEUROLOGIC: Awake, alert and oriented x 3. No focal motor deficits. LABORATORY DATA: WBC 8.8, hemoglobin 11, hematocrit 36, platelets 558. Chemistry reviewed and unremarkable. ASSESSMENT: The patient is a 47-year-old woman with no significant past medical history who was recently treated with a 10 day course of Levaquin for left lower lobe pneumonia, with cultures growing Streptococcus pneumoniae, who returned to [facility] ED for evaluation of a 2 day history of left-sided pleuritic chest pain and was admitted for management of healthcare-associated pneumonia. PLAN: 1. Healthcare-associated pneumonia. Input by Dr. Calderón greatly appreciated. Continue with current antimicrobials. Input from Dr. Berger also greatly appreciated. The patient is s/p chest tube insertion with approximately 1.5 liters of fluid drainage with subsequent significant improvement in her respiratory status. We will continue to monitor closely the chest tube output. Continue to monitor for fever and leukocytosis. Continue supplemental oxygen and bronchodilators as needed. 2. Prophylaxis. GI prophylaxis not indicated as the patient is eating. DVT prophylaxis not indicated as the patient is ambulatory. CODE STATUS: Full code. Meek Esposito MD [facility] # [id number] [place]
--- NOTE | 2017-10-20 13:30 | CP.PCM.CON ---
History of Present Illness - History of Present Illness History of Present Illness: CT Surgery Consult for Dr. Aguirre This is a 47F with no PMH who presents 4 weeks after a pneumonia with a pleural effusion. IR placed pigtail with partial improvement of effusion. Vitals signs stable, no gross lab abnormalities. Pt reports left sided back pain denies chate pain or SOB. PMH: Denies PSH: Denies ALL: Codine Social: Denies vices Review of Systems - Review of Systems Review of Systems: 12 point review of symptoms negative except for left back pain Past Patient History - Past Social History Smoking Status: Never Smoked - CARDIAC Hx Cardiac Disorders: No - PULMONARY Hx Pneumonia: Yes - NEUROLOGICAL Hx Neurological Disorder: No - HEENT Hx HEENT Problems: No - RENAL Hx Chronic Kidney Disease: No - ENDOCRINE/METABOLIC Hx Endocrine Disorders: Yes Other/Comment: CT SCAN SHOWED ENLARGED THYROID RIGHT > LEFT-GOITER - HEMATOLOGICAL/ONCOLOGICAL Hx Blood Disorders: No - INTEGUMENTARY Hx Dermatological Problems: No - MUSCULOSKELETAL/RHEUMATOLOGICAL Hx Musculoskeletal Disorders: No Hx Falls: No - GASTROINTESTINAL Hx Gastrointestinal Disorders: No - GENITOURINARY/GYNECOLOGICAL Hx Genitourinary Disorders: No - PSYCHIATRIC Hx Substance Use: No - SURGICAL HISTORY Hx Surgeries: No - ANESTHESIA Hx Anesthesia: No Meds Allergies/Adverse Reactions: Allergies Allergy/AdvReac Type Severity Reaction Status Date / Time codeine Allergy FATIGUE Verified 10/13/17 11:58 - Medications Medications: Current Medications Acetylcysteine (Acetylcysteine 20%) 4 ml IH BIDRESP GIBSON Last Admin: 10/20/17 07:42 Dose: 4 ml Albuterol/Ipratropium (Duoneb 3 Mg/0.5 Mg (3 Ml) Ud) 3 ml IH Q2H PRN PRN Reason: Shortness of Breath Guaifenesin (Robitussin) 100 mg PO Q4H PRN PRN Reason: Cough Last Admin: 10/17/17 09:14 Dose: 100 mg Alteplase, Recombinant 10 mg/ (Sodium Chloride) 100 mls @ 0 mls/hr IV BID GIBSON Last Admin: 10/19/17 19:10 Dose: 100 mls/hr Ibuprofen (Motrin Tab) 600 mg PO Q6H PRN PRN Reason: Pain, moderate (4-7) Last Admin: 10/14/17 10:48 Dose: 600 mg Levalbuterol HCl (Xopenex) 0.63 mg IH [id number] GIBSON Last Admin: 10/20/17 07:42 Dose: 0.63 mg Lorazepam (Ativan) 0.5 mg PO Q6 PRN; Protocol PRN Reason: Anxiety Last Admin: 10/20/17 13:17 Dose: 0.5 mg Tramadol HCl (Ultram) 50 mg PO TID PRN PRN Reason: Pain, moderate (4-7) Last Admin: 10/19/17 22:35 Dose: 50 mg Physical Exam - Constitutional Appears: Non-toxic, No Acute Distress - Head Exam Head Exam: ATRAUMATIC, NORMOCEPHALIC - Eye Exam Eye Exam: EOMI, Normal appearance - ENT Exam ENT Exam: Mucous Membranes Moist - Respiratory Exam Respiratory Exam: NORMAL BREATHING PATTERN - Cardiovascular Exam Cardiovascular Exam: +S1, +S2 - GI/Abdominal Exam GI & Abdominal Exam: Soft Results - Vital Signs Recent Vital Signs: Last Vital Signs Temp 98.1 F 10/20/17 06:00 Pulse 91 H 10/20/17 06:00 Resp 20 10/20/17 06:00 BP 126/89 10/20/17 06:00 Pulse Ox 98 10/20/17 06:00 - Labs Result Diagrams: 10/20/17 06:30 10/20/17 06:30 Labs: Laboratory Results - last 24 hr 10/18/17 10/18/17 10/20/17 06:30 06:30 06:30 WBC RBC Hgb Hct MCV MCH MCHC RDW Plt Count MPV Gran % Lymph % (Auto) [place] % (Auto) Eos % (Auto) Baso % (Auto) Gran # Lymph # (Auto) [place] # (Auto) Eos # (Auto) Baso # (Auto) Sodium Potassium Chloride Carbon Dioxide Anion Gap BUN Creatinine Est GFR ( Amer) Est GFR (Non-Af Amer) Random Glucose Calcium Total Bilirubin AST ALT Alkaline Phosphatase Total Protein Albumin Globulin Albumin/Globulin Ratio Proteinase 3 (PR3) <1.0 <1.0 Myeloperoxidase Ab <1.0 <1.0 Complement C3 178.0 H Complement C4 53.9 H 10/20/17 10/20/17 06:30 06:30 WBC 8.8 RBC 4.23 Hgb 11.4 L Hct 35.9 L MCV 84.9 MCH 27.0 MCHC 31.8 RDW 14.6 H Plt Count 558 H MPV 8.2 Gran % 72.3 H Lymph % (Auto) 19.7 L [place] % (Auto) 6.2 H Eos % (Auto) 1.5 Baso % (Auto) 0.3 Gran # 6.38 Lymph # (Auto) 1.7 [place] # (Auto) 0.6 Eos # (Auto) 0.1 Baso # (Auto) 0.03 Sodium 141 Potassium 4.3 Chloride 101 Carbon Dioxide 28 Anion Gap 16 BUN 5 L Creatinine 0.7 Est GFR ( Amer) > 60 Est GFR (Non-Af Amer) > 60 Random Glucose 114 H Calcium 8.7 Total Bilirubin 0.6 AST 30 ALT 44 Alkaline Phosphatase 94 Total Protein 7.4 Albumin 3.7 Globulin 3.7 Albumin/Globulin Ratio 1.0 L Proteinase 3 (PR3) Myeloperoxidase Ab Complement C3 Complement C4 Assessment & Plan - Assessment and Plan (Free Text) Assessment: 47F with parapneumonic effusion We recommended a chest tube placement. Patient was originally amendable however she is now refusing. Please contact the surgical service if further evaluation is needed. D/W Dr. Timothy Watson PGY3
--- NOTE | 2017-10-20 14:56 | CP.PCM.CON ---
History of Present Illness - History of Present Illness History of Present Illness: General Surgery Consult for Dr. Mcdonald This is a 47F with no PMH who presents 4 weeks after a pneumonia with a pleural effusion. IR placed pigtail with partial improvement of effusion. Vitals signs stable, no gross lab abnormalities. Pt reports left sided back pain denies chest pain or SOB. PMH: Denies PSH: Denies ALL: Codine Social: Denies vices Review of Systems - Review of Systems All systems: reviewed and no additional remarkable complaints except - Constitutional Constitutional: absent: Chills, Fever - Cardiovascular Cardiovascular: absent: Chest Pain, Dyspnea - Respiratory Respiratory: absent: Cough, Dyspnea Past Patient History - Past Social History Smoking Status: Never Smoked - CARDIAC Hx Cardiac Disorders: No - PULMONARY Hx Pneumonia: Yes - NEUROLOGICAL Hx Neurological Disorder: No - HEENT Hx HEENT Problems: No - RENAL Hx Chronic Kidney Disease: No - ENDOCRINE/METABOLIC Hx Endocrine Disorders: Yes Other/Comment: CT SCAN SHOWED ENLARGED THYROID RIGHT > LEFT-GOITER - HEMATOLOGICAL/ONCOLOGICAL Hx Blood Disorders: No - INTEGUMENTARY Hx Dermatological Problems: No - MUSCULOSKELETAL/RHEUMATOLOGICAL Hx Musculoskeletal Disorders: No Hx Falls: No - GASTROINTESTINAL Hx Gastrointestinal Disorders: No - GENITOURINARY/GYNECOLOGICAL Hx Genitourinary Disorders: No - PSYCHIATRIC Hx Substance Use: No - SURGICAL HISTORY Hx Surgeries: No - ANESTHESIA Hx Anesthesia: No Meds Allergies/Adverse Reactions: Allergies Allergy/AdvReac Type Severity Reaction Status Date / Time codeine Allergy FATIGUE Verified 10/13/17 11:58 - Medications Medications: Current Medications Acetylcysteine (Acetylcysteine 20%) 4 ml IH B[facility]RESP [facility] Last Admin: 10/20/17 07:42 Dose: 4 ml Albuterol/Ipratropium (Duoneb 3 Mg/0.5 Mg (3 Ml) Ud) 3 ml IH Q2H PRN PRN Reason: Shortness of Breath Guaifenesin (Robitussin) 100 mg PO Q4H PRN PRN Reason: Cough Last Admin: 10/17/17 09:14 Dose: 100 mg Alteplase, Recombinant 10 mg/ (Sodium Chloride) 100 mls @ 0 mls/hr IV BID GIBSON Last Admin: 10/19/17 19:10 Dose: 100 mls/hr Ibuprofen (Motrin Tab) 600 mg PO Q6H PRN PRN Reason: Pain, moderate (4-7) Last Admin: 10/14/17 10:48 Dose: 600 mg Levalbuterol HCl (Xopenex) 0.63 mg IH [id number] GIBSON Last Admin: 10/20/17 07:42 Dose: 0.63 mg Lorazepam (Ativan) 0.5 mg PO Q6 PRN; Protocol PRN Reason: Anxiety Last Admin: 10/20/17 13:17 Dose: 0.5 mg Tramadol HCl (Ultram) 50 mg PO TID PRN PRN Reason: Pain, moderate (4-7) Last Admin: 10/19/17 22:35 Dose: 50 mg Physical Exam - Constitutional Appears: Non-toxic - Head Exam Head Exam: ATRAUMATIC, NORMOCEPHALIC - Eye Exam Eye Exam: EOMI - ENT Exam ENT Exam: Mucous Membranes Moist - Respiratory Exam Respiratory Exam: NORMAL BREATHING PATTERN Additional comments: IR chest tube in place - Cardiovascular Exam Cardiovascular Exam: +S1, +S2 - GI/Abdominal Exam GI & Abdominal Exam: Soft. absent: Distended, Firm, Hernia, Rigid - Neurological Exam Neurological exam: Oriented x3 - Psychiatric Exam Psychiatric exam: Normal Affect, Normal Mood - Skin Skin Exam: Dry, Intact Results - Vital Signs Recent Vital Signs: Last Vital Signs Temp 98.1 F 10/20/17 06:00 Pulse 91 H 10/20/17 06:00 Resp 20 10/20/17 06:00 BP 126/89 10/20/17 06:00 Pulse Ox 98 10/20/17 06:00 - Labs Result Diagrams: 10/20/17 06:30 10/20/17 06:30 Labs: Laboratory Results - last 24 hr 10/18/17 10/18/17 10/18/17 06:30 06:30 06:30 WBC RBC Hgb Hct MCV MCH MCHC RDW Plt Count MPV Gran % Lymph % (Auto) [place] % (Auto) Eos % (Auto) Baso % (Auto) Gran # Lymph # (Auto) [place] # (Auto) Eos # (Auto) Baso # (Auto) Sodium Potassium Chloride Carbon Dioxide Anion Gap BUN Creatinine Est GFR ( Amer) Est GFR (Non-Af Amer) Random Glucose Calcium Total Bilirubin AST ALT Alkaline Phosphatase Total Protein Albumin Globulin Albumin/Globulin Ratio RAQUEL Nuclear Membr Pat Positive H Proteinase 3 (PR3) <1.0 <1.0 Myeloperoxidase Ab <1.0 <1.0 Complement C3 Complement C4 10/20/17 10/20/17 10/20/17 06:30 06:30 06:30 WBC 8.8 RBC 4.23 Hgb 11.4 L Hct 35.9 L MCV 84.9 MCH 27.0 MCHC 31.8 RDW 14.6 H Plt Count 558 H MPV 8.2 Gran % 72.3 H Lymph % (Auto) 19.7 L [place] % (Auto) 6.2 H Eos % (Auto) 1.5 Baso % (Auto) 0.3 Gran # 6.38 Lymph # (Auto) 1.7 [place] # (Auto) 0.6 Eos # (Auto) 0.1 Baso # (Auto) 0.03 Sodium 141 Potassium 4.3 Chloride 101 Carbon Dioxide 28 Anion Gap 16 BUN 5 L Creatinine 0.7 Est GFR ( Amer) > 60 Est GFR (Non-Af Amer) > 60 Random Glucose 114 H Calcium 8.7 Total Bilirubin 0.6 AST 30 ALT 44 Alkaline Phosphatase 94 Total Protein 7.4 Albumin 3.7 Globulin 3.7 Albumin/Globulin Ratio 1.0 L RAQUEL Nuclear Membr Pat Proteinase 3 (PR3) Myeloperoxidase Ab Complement C3 178.0 H Complement C4 53.9 H Assessment & Plan - Assessment and Plan (Free Text) Assessment: 47F with parapneumonic effusion POD1 s/p IR pigtail chest tube Patient is clinically improving No surgical management at this time In the event a chest tube is needed, will place a surgical chest tube D/W Dr. Harry Watson PGY3
[2017-10-21] MEDS: Levalbuterol 0.63 MG/3 ML Inhal Soln UD IH SCH ×6 (04:37→23:16)
[2017-10-21 07:06] LABS: ALBUMIN (PEP) 2.6 g/dL (3.8-4.8); ALPHA-1-GLOBULIN (PEP) 0.5 g/dL (0.2-0.3)
[2017-10-21 07:26] LABS: BASO # 0.02 K/mm3 (0.0-2.0); BASO % 0.2 % (0.0-3.0); EOS # 0.2 (0.0-0.7); EOS % 1.7 % (1.5-5.0); GRAN # 7.35 (1.4-6.5); GRAN % 75.2 % (50.0-68.0); HEMOGLOBIN 11.1 g/dL (12.0-16.0); LYMPH # 1.6 (1.2-3.4); LYMPH % 15.8 % (22.0-35.0); MEAN CELL VOLUME 83.7 fl (80.0-105.0); MEAN CORPUSCULAR HEMOGLOBIN 26.9 pg (25.0-35.0); MEAN CORPUSCULAR HGB CONC 32.2 g/dl (31.0-37.0); MEAN PLATELET VOLUME 8.3 fl (7.0-11.0); MONO # 0.7 (0.1-0.6); MONO % 7.1 % (1.0-6.0); RBC 4.12 10^6/uL (3.5-6.1); RED CELL DISTRIBUTION WIDTH 14.3 % (11.5-14.5); WHITE BLOOD COUNT 9.8 10^3/ul (4.5-11.0)
--- NOTE | 2017-10-21 07:32 | PN ---
Copied To: Nelson Berger MD Attending MD: Nelson Beregr MD DATE: 10/21/2017 PULMONARY NOTE SUBJECTIVE: The patient appears very comfortable this morning. She is not short of breath at rest. OBJECTIVE: VITAL SIGNS (last noted in the computer): Temperature is 98.3, pulse 96, respirations 18, blood pressure 117/76. Oxygen saturation on nasal cannula is 97%. HEENT: Normocephalic, atraumatic. NECK: No JVD. CARDIOVASCULAR: Positive S1, S2. No S3 gallop. LUNGS: Improved breath sounds - left base. Very minimal/less rhonchi. No wheezing. EXTREMITIES: No clubbing, cyanosis or edema. Calves are nontender to palpation. GI: Abdomen is soft, nontender, nondistended. Bowel sounds are positive. SKIN: No acute rash. NEUROLOGIC: Exam limited at the present time. IMPRESSION: 1. Healthcare-associated pneumonia. 2. Large loculated left pleural effusion. 3. Leukocytosis - resolved. 4. Anemia. PLAN: The patient appears comfortable this morning. She is not short of breath at rest. She does state to feeling much better overall. I did discuss the case with the night nurse at length. The night nurse stated that the patient had a good night. Between yesterday afternoon and this morning - the chest tube has drained an additional 700 mL of fluid. The patient did receive additional tPA through the chest tube yesterday. Surgical evaluation is noted. Repeat CXR--10/20/17--significantly improved. On physical exam, there is no significant bronchospasm noted. In addition, there is a decrease in the alveolar-arterial gradient. I will continue with the current nebulizer treatments for now. I will also have the patient out of bed and use her incentive spirometer as much as possible. I would continue with the antibiotic coverage as per Infectious Disease. Temperatures have fully resolved. The leukocytosis has also fully resolved. Lastly, I did review the pathology from the pleural fluid. It is negative for malignant cells. There are mesothelial cells and mixed inflammatory cells present. Clinical status of the patient is significantly improved. I will discuss the above with Dr. Esposito this morning. Nelson Berger MD [facility] # [id number] [place]
[2017-10-21 07:56] LABS: ALBUMIN 3.4 g/dL (3.0-4.8); ALT/SGPT 35 U/L (7-56); AST/SGOT 32 U/L (14-36); BLOOD UREA NITROGEN 4 mg/dL (7-21); CALCIUM 8.5 mg/dL (8.4-10.5); GFR NON-AFRICAN AMERICAN > 60
[2017-10-21] MEDS: Acetylcysteine 20% Inhal Soln (4ml) IH SCH ×2 (08:50→20:09)
--- NOTE | 2017-10-21 09:37 | PN ---
SUBJECTIVE: The patient was seen and examined at bedside on the general medical ac. No acute events overnight. She remains afebrile and hemodynamically stable. She was noted to have an additional 700 mL of output from her left-sided chest tube. This morning she feels well and offers no complaints. OBJECTIVE: VITAL SIGNS: Temperature 98.3, pulse 96, blood pressure 117/76, respiratory rate 18, oxygen saturation 97% on room air. GENERAL: No apparent distress. HEENT: PERRL, EOMI. No scleral icterus. No conjunctival pallor. NECK: No JVD. LUNGS: Decreased breath sounds at the bases (significantly improved) with minimal rhonchi. CHEST: Left-sided chest tube in place, draining serosanguineous discharge. CARDIOVASCULAR: Regular rate and rhythm. Normal S1, S2. No murmurs, rubs or gallops. ABDOMEN: Normoactive bowel sounds, soft, nontender, nondistended. EXTREMITIES: No edema. NEUROLOGIC: Awake, alert and oriented x 3. No focal motor deficits. LABORATORY DATA: WBC 9.8, hemoglobin 11, hematocrit 35, platelets 547. Chemistry pending. ASSESSMENT: The patient is a 47-year-old woman with no significant past medical history who was recently treated with a 10 day course of Levaquin for left lower lobe pneumonia, with cultures growing Streptococcus pneumoniae, who returned to [facility] ED for evaluation of a 2 day history of left-sided pleuritic chest pain and was admitted for management of healthcare-associated pneumonia and a large left-sided pleural effusion who is now s/p left-sided chest tube placement. PLAN: 1. Healthcare-associated pneumonia with large left pleural effusion. Input from Dr. Berger greatly appreciated. The chest tube continues to drain approximately 700 mL of serosanguineous fluid over the preceding 24 hours. The patient is demonstrating clinical improvement. We will repeat a plain film radiograph in 24 hours to assess for continued improvement in her pleural effusion. Input from Dr. Calderón greatly appreciated and we will continue antimicrobials as per ID. 2. Prophylaxis. GI prophylaxis not indicated as the patient is eating. DVT prophylaxis not indicated as the patient is ambulatory. CODE STATUS: full code. Meek Esposito MD [facility] # [id number] [place]
[2017-10-21] MEDS: levoFLOXacin 500 MG TAB PO SCH (11:34)
[2017-10-21 13:24] LABS: ANCA SCREEN NEGATIVE (NEGATIVE)
--- NOTE | 2017-10-21 16:55 | PN ---
Copied To: Estuardo Calderón MD Attending MD: Estuardo Calderón MD DATE: 10/21/2017 SUBJECTIVE: The patient is in bed, in no acute distress. PHYSICAL EXAMINATION: VITAL SIGNS: Temperature is 98, blood pressure is 120/70, and respiratory rate of 20. HEENT: Unremarkable. NECK: Supple. LUNGS: Decreased breath sounds. HEART: Normal S1, S2. ABDOMEN: Soft. LABORATORY EXAMINATION: Reveals the white count is 9.8. Chemistries are reviewed and urinalysis is noted. The wbc count is 3000 in the pleural fluid and with glucose of 93. LDH of 555. The pH is 8. The patient does have an antinuclear membrane pattern positive. Complement levels are noted. RAQUEL screen and titers are pending. Nonreactive HIV in urine antigen negative. Currently, the patient Zosyn has been discontinued by pharmacy. Recent EKG, QTC is 428. Dr. Meek Esposito's note is reviewed. ASSESSMENT AND PLAN: A 47-year-old female with morbid obesity, body mass index of 41, had streptococcus pneumoniae bacteremia. Streptococcus pneumonia complicated with parapneumonic effusion and empyema, loculated effusion, status post chest tube placement, significant drainage, now off Zosyn, pharmacies continued. We will be able to treat with p.o. Levaquin and follow with you. Estuardo Calderón MD
[2017-10-22] MEDS: Levalbuterol 0.63 MG/3 ML Inhal Soln UD IH SCH (04:05)
[2017-10-22] MEDS: Levalbuterol 1.25 MG/3 ML Inhal Soln UD IH SCH ×3 (07:27→22:15)
[2017-10-22] MEDS: Acetylcysteine 20% Inhal Soln (4ml) IH SCH ×3 (07:27→22:15)
--- NOTE | 2017-10-22 07:49 | PN ---
Copied To: Nelson Berger MD Attending MD: Nelson Berger MD DATE: 10/22/2017 PULMONARY NOTE SUBJECTIVE: The patient appears comfortable this morning. She is not short of breath at rest. PHYSICAL EXAMINATION: VITAL SIGNS: Temperature is 98, pulse this morning is 88, respiratory rate is 18, blood pressure 116/76. Oxygen saturation on nasal cannula is 98%. HEENT: Normocephalic, atraumatic. No JVD. CARDIOVASCULAR: Positive S1, S2. No S3 gallop. LUNGS: Decreased breath sounds - left base - much improved overall. Minimal rhonchi. No wheezing. EXTREMITIES: No clubbing, cyanosis or edema. Calves are nontender to palpation. GI: Abdomen is soft, nontender and nondistended. Bowel sounds are positive. SKIN: No acute rash. NEUROLOGIC: Limited at the present time. PERTINENT LABORATORY DATA: Chest x-ray was done this morning and reviewed. It is similar to the film done on 10/20/2017 - but much improved overall. Official results are pending. IMPRESSION: 1. Healthcare-associated pneumonia. 2. Large loculated left pleural effusion. 3. Leukocytosis - resolved. 4. Anemia. PLAN: The patient appears comfortable this morning. She is not short of breath at rest. She does state to feeling much better overall. I did discuss the case with the night nurse at length. The night nurse stated that the patient had a very good night. In addition, there was another approximately 500 mL of fluid drained from the chest tube. I would continue with the chest tube management as per Surgery and Interventional Radiology. I did review the chest x-ray as above. The chest x-ray is similar to the previous film done - but much improved from a few days ago. The remaining abnormalities on chest x-ray probably represent a combination of effusion and atelectasis - both of which should resolve in time. On physical exam, there is no significant bronchospasm noted. In addition, the alveolar-arterial gradient is much less. I will continue the current nebulizer treatments and aggressive pulmonary toilet for now. Clinical status of the patient is significantly improved overall. I will discuss the above with Dr. Esposito this morning. Nelson Berger MD [facility] # [id number] [place]
[2017-10-22 08:11] LABS: BASO # 0.01 K/mm3 (0.0-2.0); BASO % 0.1 % (0.0-3.0); EOS # 0.2 (0.0-0.7); EOS % 1.5 % (1.5-5.0); GRAN # 7.61 (1.4-6.5); GRAN % 75.7 % (50.0-68.0); HEMOGLOBIN 10.8 g/dL (12.0-16.0); LYMPH # 1.7 (1.2-3.4); LYMPH % 16.4 % (22.0-35.0); MEAN CELL VOLUME 83.5 fl (80.0-105.0); MEAN CORPUSCULAR HEMOGLOBIN 26.7 pg (25.0-35.0); MONO # 0.6 (0.1-0.6); MONO % 6.3 % (1.0-6.0); RBC 4.05 10^6/uL (3.5-6.1); RED CELL DISTRIBUTION WIDTH 14.2 % (11.5-14.5); WHITE BLOOD COUNT 10.1 10^3/ul (4.5-11.0)
[2017-10-22 08:23] LABS: ALBUMIN 3.5 g/dL (3.0-4.8); ALT/SGPT 30 U/L (7-56); AST/SGOT 28 U/L (14-36); BLOOD UREA NITROGEN 4 mg/dL (7-21); CALCIUM 8.6 mg/dL (8.4-10.5); GFR NON-AFRICAN AMERICAN > 60
--- NOTE | 2017-10-22 08:26 | PN ---
SUBJECTIVE: The patient was seen and examined at bedside on the general medical ac. No acute events overnight. She remains afebrile and hemodynamically stable. The patient is noted to have approximately 550 mL of output from her chest tube. She continues to endorse improvement in her respiratory status and denies fevers , chills, rigors, chest pain or hemoptysis. OBJECTIVE: VITAL SIGNS: Temperature 98, pulse 100, blood pressure 116/76, respiratory rate 20, oxygen saturation 98% on 2 L nasal cannula. GENERAL: No apparent distress. HEENT: PERRL, EOMI. No scleral icterus. No conjunctival pallor. NECK: No JVD. LUNGS: Decreased breath sounds to the left base with minimal rhonchi. CHEST: Left-sided chest tube in place draining serosanguineous discharge. CARDIOVASCULAR: Tachycardic. Normal S1 and S2. No murmurs, rubs or gallops. ABDOMEN: Normoactive bowel sounds. Soft, nontender and nondistended. EXTREMITIES: No edema. NEUROLOGIC: Awake, alert and oriented x 3. No focal motor deficits. LABORATORY DATA: Morning labs are pending. ASSESSMENT: The patient is a 47-year-old woman with no significant past medical history who was recently treated with a 10 day course of Levaquin for left lower lobe pneumonia, with cultures growing Streptococcus pneumoniae, who returned to [facility] ED for evaluation of a 2 day history of left-sided pleuritic chest pain and was admitted for management of healthcare-associated pneumonia complicated by a large left sided parapneumonic pleural effusion and is now s/p left-sided chest tube placement. PLAN: 1. Healthcare-associated pneumonia complicated with large left parapneumonic pleural effusion s/p chest tube placement. Input from Dr. Berger greatly appreciated. The patient continues to demonstrate clinical improvement. Repeat chest x-ray reviewed. Input from Dr. Calderón also noted and greatly appreciated and the patient has been started on Levofloxacin 500 mg p.o. daily. 2. Prophylaxis. GI prophylaxis is not indicated as the patient is eating. DVT prophylaxis is not indicated as the patient is ambulatory. CODE STATUS: Full code. Meek Esposito MD [facility] # [id number] [place]
--- NOTE | 2017-10-22 09:24 | RAD ---
Date of service: 10/22/2017 HISTORY: chest tube COMPARISON: 10/20/2017 FINDINGS: LUNGS: No active pulmonary disease. PLEURA: Left-sided chest tube is again seen. No change in small pleural effusion. CARDIOVASCULAR: Normal. OSSEOUS STRUCTURES: No significant abnormalities. VISUALIZED UPPER ABDOMEN: Normal. OTHER FINDINGS: None. IMPRESSION: Left-sided chest tube is again seen. No change in small pleural effusion.
[2017-10-22] MEDS: levoFLOXacin 500 MG TAB PO SCH (10:42)
--- NOTE | 2017-10-22 22:29 | PN ---
Copied To: Estuardo Cadlerón MD Attending MD: Estuardo Calderón MD DATE: 10/22/2017 SUBJECTIVE: The patient is in bed in no acute distress, nontoxic. PHYSICAL EXAMINATION: VITAL SIGNS: Temperature is 98, blood pressure is 125/70, respiratory rate of 20. HEENT: Examination of HEENT is unremarkable. NECK: Supple. LUNGS: Have decreased breath sounds. HEART: Normal S1, S2. ABDOMEN: Soft, nontender. LABORATORY EXAMINATION: Reveals a white count of 10,000, hemoglobin of 10, platelets of 454. Chemistries reveals a BUN of 4, creatinine of 0.5. Procalcitonin is noted to be negative x2. Dr. Berger's note is reviewed and Dr. Meek Esposito's is note is reviewed. ASSESSMENT AND PLAN: A 47-year-old female seen in room 578, bed 2 with morbid obesity, body mass index of 41, Streptococcus pneumonia bacteremia, Streptococcus pneumonia complicated by parapneumonic effusion, empyema, loculated effusion, status post chest tube placement with significant drainage, currently on p.o. Levaquin, all repeat cultures are negative and procalcitonin is negative. We will continue present course and follow closely with you. Case discussed with nursing staff. Estuardo Calderón MD
[2017-10-23] MEDS: Acetylcysteine 20% Inhal Soln (4ml) IH SCH ×4 (03:16→19:55)
[2017-10-23] MEDS: Levalbuterol 1.25 MG/3 ML Inhal Soln UD IH SCH ×4 (03:16→19:55)
--- NOTE | 2017-10-23 07:31 | PN ---
Copied To: Estuardo Calderón MD Attending MD: Estuardo Calderón MD DATE: 10/23/2017 SUBJECTIVE: The patient is in bed, in no acute distress, nontoxic. PHYSICAL EXAMINATION: VITAL SIGNS: Temperature is 98, blood pressure is 135/80, respiratory rate of 18. HEENT: Examination of HEENT is unremarkable. NECK: Supple. LUNGS: Have decreased breath sounds. HEART: Normal S1, S2. ABDOMEN: Soft, nontender. LABORATORY DATA: Laboratory examination reveals the white count is 10,000, hemoglobin of 10. Chemistries are noted. Pleural fluid results are noted. The patient's urine for Legionella antigen is negative. HIV is negative. Cultures are negative. The pleural fluid cultures are negative. Dr. Berger's note is reviewed. ASSESSMENT AND PLAN: A 47-year-old white female seen earlier with morbid obesity, body mass index of 41, who had Streptococcus pneumoniae bacteremia and Streptococcus pneumoniae complicated by parapneumonic effusion and empyema, loculated effusion, status post chest tube placement with significant drainage, currently on p.o. Levaquin, normal white count, afebrile, negative procalcitonin. Dr. Meek Esposito's note is reviewed and appreciated. We will follow. Estuardo Calderón MD
[2017-10-23 07:47] VITALS: RESP 20
--- NOTE | 2017-10-23 08:28 | PN ---
Copied To: Nelson Berger MD Attending MD: Nelson Berger MD DATE: 10/23/2017 PULMONARY NOTE SUBJECTIVE: The patient appears comfortable this morning. She is not short of breath at rest. OBJECTIVE: VITAL SIGNS: Temperature is 98.3, pulse 88, respirations 18, blood pressure 135/88. Oxygen saturation on nasal cannula is 96%. HEENT: Normocephalic, atraumatic. No JVD. CARDIOVASCULAR: Positive S1, S2. No S3 gallop. LUNGS: Improved breath sounds - left base. Very minimal rhonchi. No wheezing. EXTREMITIES: No clubbing, cyanosis or edema. Calves are nontender to palpation. GI: Abdomen is soft, nontender and nondistended. Bowel sounds are positive. SKIN: No acute rash. NEUROLOGIC: Exam limited at the present time. PERTINENT LABORATORY DATA: Chest x-ray was done yesterday and reviewed. The chest x-ray yesterday was similar to the previous film done, but much improved compared to the previous films during the week. IMPRESSION: 1. Healthcare-associated pneumonia. 2. Large loculated left pleural effusion. 3. Leukocytosis - resolved. 4. Anemia. PLAN: The patient appears very comfortable this morning. She is not short of breath at rest. She does state to feeling better overall. I did discuss the case with the night nurse at length. The night nurse stated that the patient had a very good night. An additional 200 mL of fluid has drained from the chest tube. On physical exam, there is no significant bronchospasm noted. In addition, the alveolar-arterial gradient has significantly decreased. I will continue with the current nebulizer treatments and pulmonary toilet for now. The patient remains on antibiotic therapy - as per Infectious Disease. Temperatures have fully resolved. The leukocytosis has also fully resolved. Inputs by ID and Surgery are noted. Clinical status of the patient is significantly improved overall. I will discuss the above with Dr. Esposito. Nelson Berger MD [facility]
[2017-10-23 08:54] LABS: BASO # 0.02 K/mm3 (0.0-2.0); BASO % 0.2 % (0.0-3.0); EOS # 0.2 (0.0-0.7); EOS % 2.4 % (1.5-5.0); GRAN # 6.14 (1.4-6.5); GRAN % 69.7 % (50.0-68.0); LYMPH # 1.9 (1.2-3.4); LYMPH % 21.1 % (22.0-35.0); MEAN CORPUSCULAR HEMOGLOBIN 27.1 pg (25.0-35.0); MEAN CORPUSCULAR HGB CONC 32.6 g/dl (31.0-37.0); MEAN PLATELET VOLUME 8.4 fl (7.0-11.0); MONO # 0.6 (0.1-0.6); MONO % 6.6 % (1.0-6.0); RBC 4.06 10^6/uL (3.5-6.1); RED CELL DISTRIBUTION WIDTH 14.1 % (11.5-14.5); WHITE BLOOD COUNT 8.8 10^3/ul (4.5-11.0)
[2017-10-23 09:03] LABS: ALBUMIN 3.5 g/dL (3.0-4.8); ALT/SGPT 28 U/L (7-56); AST/SGOT 20 U/L (14-36); BLOOD UREA NITROGEN 6 mg/dL (7-21); CALCIUM 8.9 mg/dL (8.4-10.5); GFR NON-AFRICAN AMERICAN > 60
[2017-10-23] MEDS: levoFLOXacin 500 MG TAB PO SCH (09:07)
--- NOTE | 2017-10-23 09:26 | CP.PCM.PN ---
Subjective - Date & Time of Evaluation Date of Evaluation: 10/23/17 Time of Evaluation: 08:00 - Subjective Subjective: Subjective: The patient was seen and examined at bedside on the general medical ac. No acute events overnight. She remains afebrile, hemodynamically stable and with continued improvement in her respiratory status and offers no complaints. Objective: T 98.4, P 98, BP 134/83, RR 20, O2 98% on 2L NC Gen: Non-toxic appearing woman sitting up in her chair in no apparent distress HEENT: PERRL, EOMI, no scleral icterus, no conjunctival pallor Lungs: decreased breath sounds to left base with minimal rhonchi Chest: chest tube in place to left chest wall CV: RRR, normal S1, S2, no m/r/g Abd: NABS, soft, NT, ND Ext: no c/c/e Neuro: AAO x 3, no deficits Laboratory Data: CBC reviewed and Hb of 11 noted. Chemistry unremarkable Assessment: The patient is a 47 yo woman with no significant PMH who was recently treated with a 10 day course of Levaquin for a LLL pneumonia, with blood cultures Streptococcus pneumoniae, who returned for evaluation of a 2 day history of left -sided pleuritic chest pain and was admitted for management of healthcare- associated pneumonia complicated by a large left parapneumonic effusion who is now s/p left-sided chest tube placement Plan: 1. Healthcare-associated pneumonia with large left-sided parapneumonic effusion s/p chest tube. Input from Dr. Berger appreciated. Input from Dr. Calderón appreciated. Continue with oral Levaquin. The patient continues to demonstrate clinical improvement. Continue to monitor for fever, leukocytosis and chest tube output. 2. Prophylaxis. GI prophylaxis not indicated as the patient is eating. DVT prophylaxis not indicated as the patient is ambulatory. Code Status: Full Code Objective - Vital Signs/Intake and Output Vital Signs (last 24 hours): Temp Pulse Resp BP Pulse Ox 98.4 F 98 H 20 134/83 96 10/23/17 06:00 10/23/17 06:00 10/23/17 06:00 10/23/17 06:00 10/23/17 06:00 Intake and Output: 10/23/17 10/23/17 06:59 18:59 Output Total 100 Balance -100 - Medications Medications: Current Medications Acetylcysteine (Acetylcysteine 20%) 4 ml IH [id number] [facility] Last Admin: 10/23/17 07:12 Dose: 4 ml Albuterol/Ipratropium (Duoneb 3 Mg/0.5 Mg (3 Ml) Ud) 3 ml IH Q2H PRN PRN Reason: Shortness of Breath Guaifenesin (Robitussin) 100 mg PO Q4H PRN PRN Reason: Cough Last Admin: 10/17/17 09:14 Dose: 100 mg Ibuprofen (Motrin Tab) 600 mg PO Q6H PRN PRN Reason: Pain, moderate (4-7) Last Admin: 10/20/17 16:02 Dose: 600 mg Levalbuterol HCl (Xopenex) 1.25 mg IH [id number] [facility] Last Admin: 10/23/17 07:12 Dose: 1.25 mg Levofloxacin (Levaquin) 500 mg PO DAILY [facility] PRN Reason: Protocol Stop: 10/30/17 11:16 Last Admin: 10/23/17 09:07 Dose: 500 mg Lorazepam (Ativan) 0.5 mg PO Q6 PRN; Protocol PRN Reason: Anxiety Last Admin: 10/20/17 13:17 Dose: 0.5 mg Tramadol HCl (Ultram) 50 mg PO TID PRN PRN Reason: Pain, moderate (4-7) Last Admin: 10/22/17 18:57 Dose: 50 mg - Labs Labs: 10/23/17 08:15 10/23/17 08:15
[2017-10-24] MEDS: Levalbuterol 1.25 MG/3 ML Inhal Soln UD IH SCH ×4 (01:58→20:09)
[2017-10-24] MEDS: Acetylcysteine 20% Inhal Soln (4ml) IH SCH ×4 (01:58→20:09)
--- NOTE | 2017-10-24 08:13 | PN ---
Copied To: Nelson Berger MD Attending MD: Nelson Berger MD DATE: 10/24/2017 PULMONARY NOTE SUBJECTIVE: The patient appears very comfortable this morning. She is not short of breath at rest. PHYSICAL EXAMINATION: VITAL SIGNS: (Last noted in the computer): Temperature is 99, pulse this morning is approximately 88, respiratory rate 18/20, blood pressure 129/82. Oxygen saturation on nasal cannula is 98%. HEENT: Normocephalic, atraumatic. No JVD. CARDIOVASCULAR: Positive S1, S2. No S3 gallop. LUNGS: Improved breath sounds - left base. Very minimal/less rhonchi. No wheezing. EXTREMITIES: No clubbing, cyanosis or edema. Calves are nontender to palpation. GI: Abdomen is soft, nontender and nondistended. Bowel sounds are positive. SKIN: No acute rash. NEUROLOGIC: Limited at the present time. IMPRESSION: 1. Healthcare-associated pneumonia. 2. Large loculated left pleural effusion. 3. Leukocytosis - resolved. 4. Anemia. PLAN: The patient appears very comfortable this morning. She is not short of breath at rest. She does state to feeling much better overall. I did discuss the case with the night nurse at length. The night nurse stated that the patient had a very good night. The chest tube drainage is minimal at this point in time. On physical exam, her bronchospasm continues to resolve. In addition, the alveolar arterial gradient also continues to resolve. I will continue with the current nebulizer treatments for now. The patient remains on antibiotic therapy - as per Infectious Disease. Temperatures have fully resolved. The leukocytosis is fully resolved. Clinical status of the patient is significantly improved overall. We will repeat the CAT scan of the chest - early this week - probably Wednesday. The patient is advised to continue to be out of bed and using her incentive spirometer frequently. I will discuss the above with Dr. Esposito. Nelson Berger MD [facility]
[2017-10-24] MEDS: levoFLOXacin 500 MG TAB PO SCH (10:58)
--- NOTE | 2017-10-24 14:42 | PN ---
Copied To: Estuardo Calderón MD Attending MD: Estuardo Calderón MD DATE: 10/24/2017 SUBJECTIVE: The patient is in bed, in no acute distress. PHYSICAL EXAMINATION: VITAL SIGNS: Temperature is 98, blood pressure is 130/80, respiratory rate of 16. HEENT: Unremarkable. NECK: Supple. LUNGS: Have decreased breath sounds. HEART: Normal S1, S2. ABDOMEN: Soft. The patient is still with a chest tube. LABORATORY DATA: Reviewed. Dr. Berger's note is reviewed and appreciated. Dr. Meek Esposito's note is reviewed. ASSESSMENT AND PLAN: A 47-year-old female with morbid obesity with body mass index of 41 who had Streptococcus pneumoniae bacteremia, Streptococcus pneumoniae pneumonia, complicated by parapneumonic effusion, empyema, loculated effusion, status post chest tube placement, currently on n.p.o. Levaquin. The patient is improving and chest tube drainage at this point is now minimal and the patient is afebrile, slightly tachycardic, white count is normal on p.o. Levaquin. Estuardo Calderón MD
--- NOTE | 2017-10-24 16:01 | PN ---
SUBJECTIVE: The patient was seen and examined at bedside on the general medical ac. No acute events overnight. She remains afebrile and hemodynamically stable and with continued improvement in her respiratory status. Overall she is getting better day by day and offers no complaints. PHYSICAL EXAMINATION: VITAL SIGNS: Temperature 98.3, pulse 96, blood pressure 139/99, respiratory rate 20, oxygen saturation 96% on 2 liters nasal cannula. GENERAL: No apparent distress. HEENT: PERRL, EOMI. No scleral icterus. No conjunctival pallor. NECK: No JVD. LUNGS: Decreased breath sounds at the left base. CHEST: Chest tube in place to left lateral chest wall. CARDIOVASCULAR: Regular rate and rhythm. Normal S1 and S2. No murmurs. ABDOMEN: Normoactive bowel sounds, soft, nontender, nondistended. EXTREMITIES: No edema. NEUROLOGIC: Awake, alert, and oriented x 3. No focal motor deficits. ASSESSMENT: The patient is a 47-year-old woman with no significant past medical history who was recently treated with a 10 day course of Levaquin for left lower lobe pneumonia, with blood cultures growing Streptococcus pneumoniae, who returned for evaluation of a 2 day history of left sided pleuritic chest pain and was admitted for management of healthcare-associated pneumonia complicated by a large left parapneumonic effusion who is now s/p left-sided chest tube placement. PLAN: 1. Healthcare-associated pneumonia with large left-sided parapneumonic effusion s/p chest tube. Input from Dr. Berger noted and appreciated. Input from Dr. Calderón appreciated. The patient remains on Levaquin 500 mg p.o. daily. We will schedule a repeat CT of the chest for tomorrow prior to possible removal of chest tube. Continue to monitor for fever and leukocytosis. Continue to monitor chest tube output. Continue with supplemental oxygen as needed. 2. Prophylaxis. GI prophylaxis is not indicated as the patient is eating. DVT prophylaxis is not indicated as the patient is ambulatory. CODE STATUS: Full code. Meek Esposito MD [facility]
[2017-10-25] MEDS: Levalbuterol 1.25 MG/3 ML Inhal Soln UD IH SCH ×4 (02:45→20:25)
[2017-10-25] MEDS: Acetylcysteine 20% Inhal Soln (4ml) IH SCH ×4 (02:45→20:25)
[2017-10-25 07:25] LABS: HEMOGLOBIN 9.8 g/dL (12.0-16.0); MEAN CELL VOLUME 83.4 fl (80.0-105.0); MEAN CORPUSCULAR HEMOGLOBIN 26.6 pg (25.0-35.0); MEAN CORPUSCULAR HGB CONC 31.9 g/dl (31.0-37.0); MEAN PLATELET VOLUME 8.2 fl (7.0-11.0); RBC 3.68 10^6/uL (3.5-6.1); RED CELL DISTRIBUTION WIDTH 14.1 % (11.5-14.5); WHITE BLOOD COUNT 6.6 10^3/ul (4.5-11.0)
--- NOTE | 2017-10-25 07:48 | PN ---
Copied To: Nelson Berger MD Attending MD: Nelson Berger MD DATE: 10/25/2017 PULMONARY NOTE SUBJECTIVE: The patient appears very comfortable this morning. She is not short of breath at rest. PHYSICAL EXAMINATION: VITAL SIGNS: (Last noted in the computer): Temperature is 98.3, pulse is 88, respirations 18, blood pressure 125/80. Oxygen saturation on nasal cannula is 99%. HEENT: Normocephalic, atraumatic. No JVD. CARDIOVASCULAR: Positive S1, S2. No S3 gallop. LUNGS: Definite improved breath sounds - left base. Very minimal/less rhonchi. No wheezing. EXTREMITIES: No clubbing, cyanosis or edema. Calves are nontender to palpation. GI: Abdomen is soft, nontender and nondistended. Bowel sounds are positive. SKIN: No acute rash. NEUROLOGIC: Limited at the present time. IMPRESSION: 1. Healthcare-associated pneumonia. 2. Large loculated left pleural effusion. 3. Leukocytosis - resolved. 4. Anemia. PLAN: The patient appears very comfortable this morning. She is not short of breath at rest. She does state to feeling much better overall. I did discuss the case with the night nurse at length. The night nurse stated that the patient had a very good night. Again, the chest tube drainage is minimal at this point in time. On physical exam, her bronchospasm continues to resolve. In addition, the alveolar arterial gradient also continues to resolve. Oxygen saturation on nasal cannula is now 99%. I will continue with the current nebulizer treatments and aggressive pulmonary toilet for now. The patient remains on antibiotic therapy - as per Infectious Disease. Temperatures have fully resolved. The leukocytosis has also fully resolved. Clinical status of the patient is significantly improved overall. We will obtain another CAT scan - tomorrow morning. After the CAT scan, the chest tube may very well be discontinued. I did send a second cytology (pleural fluid) this morning - for completeness sake. Repeat a.m. labs are pending. Again, the clinical status of this patient is significantly improved overall. I will discuss the above with Dr. Esposito. Nelson Berger MD [facility] # [id number] [facility]
[2017-10-25 08:15] LABS: ALT/SGPT 30 U/L (7-56); AST/SGOT 17 U/L (14-36); BLOOD UREA NITROGEN 4 mg/dL (7-21); GFR NON-AFRICAN AMERICAN > 60
[2017-10-25] MEDS: levoFLOXacin 500 MG TAB PO SCH (09:57)
--- NOTE | 2017-10-25 10:16 | PN ---
Copied To: Estuardo Calderón MD Attending MD: Estuardo Calderón MD DATE: 10/25/2017 SUBJECTIVE: The patient is in bed, in no acute distress, nontoxic. PHYSICAL EXAMINATION: VITAL SIGNS: On exam, temperature is 98, blood pressure is 114/70, respiratory rate of 20. HEENT: Examination of HEENT is unremarkable. NECK: Supple. LUNGS: Have decreased breath sounds. HEART: Normal S1, S2. ABDOMEN: Soft, nontender. LABORATORY DATA: Laboratory examination reveals a white count of 6.6, hemoglobin of 9, platelets are noted. Microbiology is reviewed. Review of orders reveals the patient is on p.o. Levaquin. ASSESSMENT AND PLAN: A 47-year-old female, seen earlier this morning with morbid obesity, body mass index of 41 and who had Streptococcus pneumoniae bacteremia. Streptococcus pneumoniae was complicated by parapneumonic effusion, empyema, loculated effusion, status post chest tube placement. Currently, the chest tube has minimal drainage, normal white count, afebrile. Human immunodeficiency virus is negative. Multiple myeloma workup in progress. Dr. Meek Esposito's note is reviewed. Currently, the patient is on p.o. Levaquin. Dr. Berger's note is reviewed. Dr. Berger also states the patient's drainage is minimal. Pleural fluid is sent for cytology. The patient is a never smoker. Estuardo Calderón MD
--- NOTE | 2017-10-25 14:39 | CP.PCM.PN ---
Subjective - Date & Time of Evaluation Date of Evaluation: 10/25/17 Time of Evaluation: 11:00 - Subjective Subjective: Subjective: The patient was seen and examined at bedside on the general medical ac. No acute events overnight. She remains afebrile, hemodynamically stable and with continued improvement in her respiratory status and offers no complaints. Objective: T 98.4, P 103, BP 136/83, RR 20, O2 98% on 2L NC Gen: Non-toxic appearing woman sitting up in her chair in no apparent distress HEENT: PERRL, EOMI, no scleral icterus, no conjunctival pallor Lungs: decreased breath sounds to left base with minimal rhonchi Chest: chest tube in place to left chest wall CV: RRR, normal S1, S2, no m/r/g Abd: NABS, soft, NT, ND Ext: no c/c/e Neuro: AAO x 3, no deficits Laboratory Data: Labs reviewed Assessment: The patient is a 47 yo woman with no significant PMH who was recently treated with a 10 day course of Levaquin for a LLL pneumonia, with blood cultures Streptococcus pneumoniae, who returned for evaluation of a 2 day history of left -sided pleuritic chest pain and was admitted for management of healthcare- associated pneumonia complicated by a large left parapneumonic effusion who is now s/p left-sided chest tube placement Plan: 1. Healthcare-associated pneumonia with large left-sided parapneumonic effusion s/p chest tube. Input from Dr. Berger appreciated. Input from Dr. Calderón appreciated. Continue with oral Levaquin. The patient continues to demonstrate clinical improvement. Continue to monitor for fever, leukocytosis and chest tube output. 2. Prophylaxis. GI prophylaxis not indicated as the patient is eating. DVT prophylaxis not indicated as the patient is ambulatory. Code Status: Full Code Objective - Vital Signs/Intake and Output Vital Signs (last 24 hours): Temp Pulse Resp BP Pulse Ox 98.2 F 86 20 114/75 97 10/25/17 08:06 10/25/17 08:06 10/25/17 08:06 10/25/17 08:06 10/25/17 08:06 Intake and Output: 10/25/17 10/25/17 06:59 18:59 Intake Total 420 Balance 420 - Medications Medications: Current Medications Acetylcysteine (Acetylcysteine 20%) 4 ml IH [id number] Last Admin: 10/25/17 13:36 Dose: 4 ml Albuterol/Ipratropium (Duoneb 3 Mg/0.5 Mg (3 Ml) Ud) 3 ml IH Q2H PRN PRN Reason: Shortness of Breath Guaifenesin (Robitussin) 100 mg PO Q4H PRN PRN Reason: Cough Last Admin: 10/17/17 09:14 Dose: 100 mg Ibuprofen (Motrin Tab) 600 mg PO Q6H PRN PRN Reason: Pain, moderate (4-7) Last Admin: 10/20/17 16:02 Dose: 600 mg Levalbuterol HCl (Xopenex) 1.25 mg IH [id number] [facility] Last Admin: 10/25/17 13:36 Dose: 1.25 mg Levofloxacin (Levaquin) 500 mg PO DAILY [facility] PRN Reason: Protocol Stop: 10/30/17 11:16 Last Admin: 10/25/17 09:57 Dose: 500 mg Lorazepam (Ativan) 0.5 mg PO Q6 PRN; Protocol PRN Reason: Anxiety Last Admin: 10/20/17 13:17 Dose: 0.5 mg Tramadol HCl (Ultram) 50 mg PO TID PRN PRN Reason: Pain, moderate (4-7) Last Admin: 10/22/17 18:57 Dose: 50 mg - Labs Labs: 10/25/17 06:30 10/25/17 06:30
[2017-10-26] MEDS: Levalbuterol 1.25 MG/3 ML Inhal Soln UD IH SCH ×4 (02:10→19:44)
[2017-10-26] MEDS: Acetylcysteine 20% Inhal Soln (4ml) IH SCH ×4 (02:10→19:44)
[2017-10-26 07:26] LABS: HEMOGLOBIN 10.2 g/dL (12.0-16.0); MEAN CELL VOLUME 83.9 fl (80.0-105.0); MEAN CORPUSCULAR HEMOGLOBIN 26.5 pg (25.0-35.0); MEAN CORPUSCULAR HGB CONC 31.6 g/dl (31.0-37.0); MEAN PLATELET VOLUME 8.1 fl (7.0-11.0); RBC 3.85 10^6/uL (3.5-6.1); RED CELL DISTRIBUTION WIDTH 14.3 % (11.5-14.5); WHITE BLOOD COUNT 6.4 10^3/ul (4.5-11.0)
--- NOTE | 2017-10-26 07:27 | PN ---
Copied To: Nelson Berger MD Attending MD: Nelson Berger MD DATE: 10/26/2017 PULMONARY NOTE SUBJECTIVE: The patient appears very comfortable this morning. She is not short of breath at rest. OBJECTIVE: VITAL SIGNS: Temperature is 97.6, pulse is 88, respirations 18, blood pressure 126/87. Oxygen saturation on room air is 96-97%. HEENT: Normocephalic, atraumatic. No JVD. CARDIOVASCULAR: Positive S1, S2. No gallop. LUNGS: Improved breath sounds - left base. Very minimal/less rhonchi. No wheezing. EXTREMITIES: No clubbing, cyanosis or edema. Calves are nontender to palpation. GI: Abdomen is soft, nontender and nondistended. Bowel sounds are positive. SKIN: No acute rash. NEUROLOGIC: Exam limited at the present time. IMPRESSION: 1. Healthcare-associated pneumonia. 2. Large loculated left pleural effusion. 3. Leukocytosis - resolved. 4. Anemia. PLAN: The patient appears very comfortable this morning. She is not short of breath at rest. She does state to feeling much better overall. The patient does state to ambulating around the floor approximately 20 times yesterday - without any significant pulmonary symptoms. I also discussed the case with the night nurse at length. The night nurse stated that the patient is doing very well overall. Again, the chest tube drainage is minimal. On physical exam, her bronchospasm continues to resolve. In addition, the alveolar-arterial gradient also continues to resolve. Oxygen saturation on room air is now 96-97%. I will continue with the current nebulizer treatments and pulmonary toilet for now. The patient also remains on antibiotic therapy - as per Infectious Disease. Input by Dr. Calderón is noted. Temperatures have fully resolved. The leukocytosis has fully resolved. Clinical status of the patient is significantly improved overall. There is a repeat CT scan ordered for today. I will check that when feasible. I will discuss the above with Dr. Esposito. Nelson Berger MD [facility]
--- NOTE | 2017-10-26 07:55 | PN ---
SUBJECTIVE: The patient was seen and examined at bedside on the general medical ac. No acute events overnight. She remains afebrile and hemodynamically stable. This morning she is pending repeat CT of the chest to assess her left-sided pleural effusion. Overall, she feels improved and offers no complaints. OBJECTIVE: VITAL SIGNS: Temperature 97.6, pulse 88, blood pressure 126/84, respiratory rate 18, oxygen saturation 96% on room air. GENERAL: No apparent distress. HEENT: PERRL, EOMI. No scleral icterus. No conjunctival pallor. NECK: No JVD, no bruits. LUNGS: Decreased breath sounds left base. CHEST: Chest tube in place to left chest wall. CARDIOVASCULAR: Regular rate and rhythm. Normal S1 and S2. No murmurs. ABDOMEN: Normoactive bowel sounds. Soft, nontender, nondistended. EXTREMITIES: No edema. NEUROLOGIC: Awake, alert and oriented x 3. No focal motor deficits. LABORATORY DATA: Morning labs are pending. ASSESSMENT: The patient is a 47-year-old woman with no significant past medical history who was recently treated with a 10 day course of Levaquin for left lower lobe pneumonia, with blood cultures growing Streptococcus pneumoniae, who returned for evaluation of a 2 day history of left-sided pleuritic chest pain and was admitted for management of healthcare-associated pneumonia complicated by a large left parapneumonic effusion who is now s/p left-sided chest tube placement. PLAN: 1. Healthcare-associated pneumonia with large left-sided parapneumonic effusion s/p chest tube. Input from Dr. Berger noted and greatly appreciated. Input from Dr. Calderón noted and greatly appreciated. The patient remains on Levofloxacin 500 mg p.o. daily. A repeat CT of the chest is pending. We will continue to monitor for fever, leukocytosis and chest tube output. 2. Prophylaxis. GI prophylaxis was not indicated as the patient is eating. DVT prophylaxis was not indicated as the patient is ambulatory. CODE STATUS: Full code. Meek Esposito MD [facility]
[2017-10-26 07:59] LABS: ALBUMIN 3.6 g/dL (3.0-4.8); ALT/SGPT 30 U/L (7-56); AST/SGOT 26 U/L (14-36); BLOOD UREA NITROGEN 5 mg/dL (7-21); CALCIUM 8.8 mg/dL (8.4-10.5); GFR NON-AFRICAN AMERICAN > 60
--- NOTE | 2017-10-26 08:17 | CT ---
Date of service: 10/26/2017 PROCEDURE: CT Chest without contrast HISTORY: pleural effusion left lung COMPARISON: 10/13/2017 TECHNIQUE: Contiguous axial images were obtained through the chest without intravenous contrast enhancement. Sagittal and coronal reconstructions were performed. Radiation dose (DLP): 1215 mGy-cm. This CT exam was performed using one or more of the following dose reduction techniques: Automated exposure control, adjustment of the mA and/or kV according to patient size, and/or use of iterative reconstruction technique. FINDINGS: LUNGS: There is improvement in the left lower lobe consolidation previously associated with a large effusion. There is now linear atelectasis at the left lung base. The pleural effusion has been drained and there is minimal residual fluid. MEDIASTINUM: Unremarkable thoracic aorta. No aneurysm. Normal sized heart. Main pulmonary artery unremarkable. No vascular congestion. No lymphadenopathy. PLEURA: Minimal residual pleural effusion. Chest tube remains in place BONES: No fracture. No destructive lesion. UPPER ABDOMEN: Grossly unremarkable. OTHER FINDINGS: Enlargement of the right lobe of the thyroid IMPRESSION: There is improvement in the left lower lobe consolidation previously associated with a large effusion. There is now linear atelectasis at the left lung base. The pleural effusion has been drained and there is minimal residual fluid.
[2017-10-26] MEDS: levoFLOXacin 500 MG TAB PO SCH (09:05)
--- NOTE | 2017-10-26 17:07 | CP.PCM.PN ---
Subjective - Date & Time of Evaluation Date of Evaluation: 10/26/17 Time of Evaluation: 11:30 - Subjective Subjective: Comfortable in bed, no fevers, no cough, no SOB at rest. Objective - Vital Signs/Intake and Output Vital Signs (last 24 hours): Temp Pulse Resp BP Pulse Ox 98 F 96 H 20 128/81 95 10/26/17 08:40 10/26/17 08:40 10/26/17 08:40 10/26/17 08:40 10/26/17 08:40 Intake and Output: 10/26/17 10/26/17 06:59 18:59 Intake Total 300 Balance 300 - Medications Medications: Current Medications Acetylcysteine (Acetylcysteine 20%) 4 ml IH [id number] [facility] Last Admin: 10/26/17 07:44 Dose: 4 ml Albuterol/Ipratropium (Duoneb 3 Mg/0.5 Mg (3 Ml) Ud) 3 ml IH Q2H PRN PRN Reason: Shortness of Breath Guaifenesin (Robitussin) 100 mg PO Q4H PRN PRN Reason: Cough Last Admin: 10/17/17 09:14 Dose: 100 mg Ibuprofen (Motrin Tab) 600 mg PO Q6H PRN PRN Reason: Pain, moderate (4-7) Last Admin: 10/20/17 16:02 Dose: 600 mg Levalbuterol HCl (Xopenex) 1.25 mg IH [id number] [facility] Last Admin: 10/26/17 07:44 Dose: 1.25 mg Levofloxacin (Levaquin) 500 mg PO DAILY [facility] PRN Reason: Protocol Stop: 10/30/17 11:16 Last Admin: 10/26/17 09:05 Dose: 500 mg Lorazepam (Ativan) 0.5 mg PO Q6 PRN; Protocol PRN Reason: Anxiety Last Admin: 10/20/17 13:17 Dose: 0.5 mg Tramadol HCl (Ultram) 50 mg PO TID PRN PRN Reason: Pain, moderate (4-7) Last Admin: 10/22/17 18:57 Dose: 50 mg - Labs Labs: 10/26/17 07:00 10/26/17 07:00 - Constitutional Appears: Chronically Ill - Head Exam Head Exam: NORMAL INSPECTION - Respiratory Exam Respiratory Exam: Decreased Breath Sounds - Cardiovascular Exam Cardiovascular Exam: +S1, +S2 - GI/Abdominal Exam GI & Abdominal Exam: Soft. absent: Tenderness Assessment and Plan - Assessment and Plan (Free Text) Plan: Assessment Sepsis due to left lower lobe healthcare-associated pneumonia with parapneumonic effusion with possible gram positive cocci and/or gram negative bacilli and/or atypical organisms S/P chest tube placement recent treatment of left lower lobe community-acquired pneumonia with Strep pneumoniae bacteremia morbid obesity with BMI 45 Plan continue Levaquin (day 13 total antibiotics) to complete 14 days of therapy reviewed pleural fluid cytology - no malignant cells presents as per official report
[2017-10-27] MEDS: Acetylcysteine 20% Inhal Soln (4ml) IH SCH ×2 (01:56→07:34)
[2017-10-27] MEDS: Levalbuterol 1.25 MG/3 ML Inhal Soln UD IH SCH ×2 (01:56→07:34)
[2017-10-27 07:16] LABS: HEMOGLOBIN 10.4 g/dL (12.0-16.0); MEAN CELL VOLUME 84.1 fl (80.0-105.0); MEAN CORPUSCULAR HEMOGLOBIN 26.6 pg (25.0-35.0); MEAN CORPUSCULAR HGB CONC 31.6 g/dl (31.0-37.0); MEAN PLATELET VOLUME 8.1 fl (7.0-11.0); RBC 3.91 10^6/uL (3.5-6.1); RED CELL DISTRIBUTION WIDTH 14.3 % (11.5-14.5); WHITE BLOOD COUNT 7.1 10^3/ul (4.5-11.0)
[2017-10-27 07:38] LABS: ALBUMIN 3.5 g/dL (3.0-4.8); ALT/SGPT 23 U/L (7-56); AST/SGOT 19 U/L (14-36); BLOOD UREA NITROGEN 6 mg/dL (7-21); CALCIUM 8.8 mg/dL (8.4-10.5); GFR NON-AFRICAN AMERICAN > 60
--- NOTE | 2017-10-27 08:24 | PN ---
Copied To: Nelson Berger MD Attending MD: Nelson Berger MD DATE: 10/27/2017 PULMONARY NOTE SUBJECTIVE: The patient appears very comfortable this morning. She is not short of breath at rest. PHYSICAL EXAMINATION: VITAL SIGNS: Vitals: (Last noted in the computer): Temperature is 97.7, pulse 90, respirations 18-20, blood pressure 164/87. Oxygen saturation on room air is 95%. HEENT: Normocephalic, atraumatic. No JVD. CARDIOVASCULAR: Positive S1, S2. No S3 gallop. LUNGS: Much improved breath sounds - left base. Very minimal/less rhonchi. No wheezing. EXTREMITIES: No clubbing, cyanosis, or edema. Calves are nontender to palpation. GASTROINTESTINAL: Abdomen is soft, nontender, nondistended. Bowel sounds are positive. SKIN: No acute rash. NEUROLOGIC: Limited at the present time. PERTINENT LABORATORY DATA: CAT scan of the chest was done yesterday and reviewed. I did review the CAT scan with Dr. Baker (Radiology) at length. There is a significant reduction in the pleural fluid collection, as well as a significant reduction in the left lower lobe atelectasis. There is now minimal linear atelectasis at the left lung base. There is a small, possibly loculated pleural effusion left. There is no lymphadenopathy. IMPRESSION: 1. Healthcare-associated pneumonia. 2. Large loculated left pleural effusion. 3. Leukocytosis - resolved. 4. Anemia. PLAN: The patient appears very comfortable this morning. She is not short of breath at rest. She is ambulating without any problems. She does state to feeling much, much better overall. On physical exam, her bronchospasm continues to resolve. In addition, the alveolar-arterial gradient is significantly less. Oxygen saturation on room air is now 95%-97%. I will continue with the current nebulizer treatments and pulmonary toilet for now. The patient remains on oral antibiotic therapy - as per Infectious Disease. Temperatures have fully resolved. The leukocytosis has fully resolved. The chest tube was discontinued yesterday. I did note the repeat CAT scan of the chest - above. It is significantly improved. Clinical status of the patient is significantly improved overall. She will be for discharge in the near future. I will discuss the above with Dr. Esposito this morning. Nelson Berger MD [facility] # [id number] [place]
[2017-10-27 08:29] VITALS: BP 133/85; PULSE 75; TEMP 98.1; O2SAT 96
--- NOTE | 2017-10-27 09:01 | PN ---
SUBJECTIVE: The patient was seen and examined at bedside on the general medical ac. No acute events overnight. She remains afebrile and hemodynamically stable. She is s/p a repeat chest CT which demonstrated near resolution of her large left pleural effusion and is now s/p removal of her left-sided chest tube. This morning she feels great and denies fevers, chills, rigors, cough or hemoptysis. She furthermore reports that she is ambulating around the ac with no exertional dyspnea and is looking forward to being discharged home. OBJECTIVE: VITAL SIGNS: Temperature 98.1, pulse 75, blood pressure 138/85, respiratory rate 20, oxygen saturation 96% on room air. GENERAL: No apparent distress. HEENT: PERRL, EOMI. No scleral icterus. No conjunctival pallor. NECK: No JVD, no bruits. LUNGS: Decreased breath sounds at the left base. CHEST: Chest tube removed with surgical site appearing clean, dry and intact. CARDIOVASCULAR: Regular rate and rhythm. Normal S1 and S2. No murmurs. ABDOMEN: Normoactive bowel sounds. Soft, nontender and nondistended. EXTREMITIES: No edema. NEUROLOGIC: Awake, alert and oriented x 3. No focal motor deficits. LABORATORY DATA: WBC 7, hemoglobin 10, hematocrit 33, platelets 472. Chemistry reviewed and unremarkable. ASSESSMENT: The patient is a 47-year-old woman with no significant past medical history who was recently treated with a 10 day course of Levaquin for left lower lobe pneumonia, with blood cultures growing Streptococcus pneumoniae, who returned for evaluation of a 2 day history of left-sided pleuritic chest pain and was admitted for management of healthcare-associated pneumonia complicated by a large left parapneumonic effusion who is now s/p removal of her left-sided chest tube and pending discharge home. PLAN: 1. Healthcare-associated pneumonia with large left-sided parapneumonic effusion s/p removal of chest tube, resolving. Input from Dr. Berger noted and greatly appreciated. Input from Dr. Calderón noted and greatly appreciated. The patient will be discharged to home on a course of Levaquin 500 mg p.o. daily. 2. Prophylaxis. GI prophylaxis is not indicated as the patient is eating. DVT prophylaxis is not indicated as the patient is ambulatory. 3. Disposition: The patient for discharge to home. CODE STATUS: Full code. Meek Esposito MD [facility] # [id number] [place]
--- NOTE | 2017-10-28 10:26 | DS ---
ADMITTING DIAGNOSIS: Healthcare-associated pneumonia complicated with a large left parapneumonic effusion. DISCHARGE DIAGNOSES: Healthcare-associated pneumonia complicated by a large left parapneumonic effusion s/p left-sided chest tube s/p removal of chest tube. SECONDARY DIAGNOSES: None. CONSULTATIONS: Dr. Calderón (Infectious Disease), Dr. Berger (Pulmonary & Critical Care Medicine), Dr. Mcdonald (General Surgery) and Dr. Reynolds (Interventional Radiology ). IMAGING STUDIES: 1. Chest x-ray demonstrated a large left pleural effusion. 2. CT of the chest without contrast demonstrated consolidation to the left lung base with a large left pleural effusion. DIAGNOSTIC STUDIES: TTE demonstrated normal LV size and function with no evidence of vegetation. PROCEDURES: 1. Ultrasound-guided thoracentesis of the left hemithorax with aspiration of 400 mL of kishor fluid. 2. Placement of left-sided chest tube. HISTORY OF PRESENT ILLNESS: The patient is a 47-year-old woman with no significant medical history who presented to [facility] for evaluation of a 10 day history of pleuritic chest pain, cough productive of green sputum, subjective fevers and malaise. The patient was initially seen at [facility] ED on 2017 for the aforementioned symptoms and was diagnosed with pneumonia and discharged on a course of Levaquin 750 mg daily for 7 days. The patient followed up with her PMD 3 days later and had her course of Levaquin extended by an additional 3 days for a total 10 day course. Approximately 2 days after completing her course of antibiotics she developed recurrent left-sided pleuritic chest pain which prompted her ED evaluation. On examination she was found to be afebrile and hemodynamically stable. Laboratory studies demonstrated leukocytosis with a WBC of 20 and radiographs demonstrated a left- sided pleural effusion (worse as compared to prior). Of note, on her prior ED visit her cultures grew Streptococcus pneumoniae. She was started on IV fluids , IV antibiotics and admitted for continued management of healthcare-associated left lower lobe pneumonia. HOSPITAL COURSE: Upon admission to the general medical ac she was evaluated by Dr. Calderón and placed on broad-spectrum IV antibiotics. She was also evaluated by Dr. Berger and aggressive bronchodilator therapy was initiated. Given her persistent symptoms, a CT of the chest was ordered and demonstrated a large left pleural effusion. The patient was evaluated by Dr. Ken Reynolds and underwent ultrasound-guided thoracentesis with aspiration of approximately 400 mL of kishor fluid. Fluid analysis was unremarkable. Approximately 36 hours later she had a repeat chest CT which demonstrated persistent left-sided pleural effusion. Due to her persistent dyspnea, a chest tube was placed. Over the following 4 days she was noted to have approximately 3 L of fluid drained from the chest tube with significant improvement in her respiratory status. The day prior to discharge she reported resolution of her pulmonary symptoms and a repeat chest x-ray demonstrated near resolution of her pleural effusion. At this point in time the chest tube was removed without difficulty. She was able to ambulate around the medical ac with no further cardiopulmonary symptoms and as such was cleared for discharge to home. CONDITION: Good, improved. DISPOSITION: Home. DISCHARGE MEDICATIONS: Levaquin 500 mg p.o. daily (to complete a 10 day course) and Ventolin HFA 2 puffs q 4-6 hours as needed for dyspnea or wheeze. DISCHARGE INSTRUCTIONS: The patient was advised that if she has any recurrence of her symptoms or any development of fevers, chills, rigors, hemoptysis, erythema or discharge at her chest tube site to present to her PMD or to the nearest ED immediately. FOLLOWUP: The patient to follow up with her PMD within 1 week of discharge. The patient to follow up with Dr. Berger as scheduled. Meek Esposito MD [facility]
== END 2017-10-27 09:55 | disposition home or self-care (01) | DRG 871 ==
LOC: ED 06:12 → ERH 09:10 → 5RSO 11:06 → 5RNO 10-26 18:04
PROVIDERS: ADMIT Student in an Organized Health Care Education/Training Program; ATTEND Student in an Organized Health Care Education/Training Program
PROC: 0W9B3ZZ Drainage of Left Pleural Cavity, Percutaneous Approach (ICD-10-PCS; 2017-10-15)
PROC: BB4BZZZ Ultrasonography of Pleura (ICD-10-PCS; 2017-10-15)
PROC: 3E0L3GC Introduction of Other Therapeutic Substance into Pleural Cavity, Percutaneous Approach (ICD-10-PCS; 2017-10-19)
PROC: 0W9B30Z Drainage of Left Pleural Cavity with Drainage Device, Percutaneous Approach (ICD-10-PCS; principal; 2017-10-19 10:00)
DX: A41.9 Sepsis, unspecified organism (principal); J13 Pneumonia due to Streptococcus pneumoniae; J86.9 Pyothorax without fistula; J90 Pleural effusion, not elsewhere classified; Z68.41 Body mass index [BMI] 40.0-44.9, adult; D64.9 Anemia, unspecified; Z82.49 Family history of ischemic heart disease and other diseases of the circulatory system; Z83.3 Family history of diabetes mellitus; E66.01 Morbid (severe) obesity due to excess calories; J98.01 Acute bronchospasm; Y95 Nosocomial condition; Z87.01 Personal history of pneumonia (recurrent)

== ENCOUNTER 2018-03-21 10:50 | Outpatient (CLI) | payer OTHER | END 2018-03-21 10:51 | disposition home or self-care (01) | LOC: RAD 10:50 ==